=== PATIENT | male | born 1970 | race Caucasian/White ===

== ENCOUNTER 2020-08-30 12:19 | Emergency (ER) | payer MEDICAID ==
[2020-08-30 12:34] VITALS: BP 108/71
[2020-08-30] MEDS ORDERED: cephALEXin 250 MG CAPSULE PO STA (12:41)
--- NOTE | 2020-08-30 12:43 | ED Physician Documentation ---
PD HPI HEENT - Stated complaint Stated Complaint: PAIN JAW - Chief complaint Chief Complaint: Heent - History obtained from History obtained from: Patient - Additional information Additional information: 50-year-old gentleman with a long history of dental problems, has difficulty seeing a dentist because of transportation issues etc. He has had worsening generally pain from several teeth on the left side over the last few days. No facial swelling or fevers. He specifically does not want clindamycin because that is what he was on last time and he is of been under the impression that you should switch antibiotics each time. Also note he has a penicillin allergy. PD PAST MEDICAL HISTORY - Present Medications Home Medications: Ambulatory Orders Medication Instructions Recorded Confirmed Clindamycin [Cleocin] 300 mg PO Q6H 7 Days capsule 03/22/15 Hydrocodone/Acetaminophen 1 each PO Q6H PRN #10 tablet 03/22/15 [Hydrocodon-Acetaminophen 5-325] Saccharomyces Boulardii [Florastor] 500 mg PO BIDWM #20 capsule 03/22/15 Clindamycin HCl [Clindamycin 300MG 300 mg PO Q6H #28 capsule 04/20/20 CAP] HYDROcod/ACETAM 5/325 [[place] 5/325] 1 - 2 ea PO Q6H PRN #7 tablet 04/20/20 Cephalexin [Keflex] 500 mg PO Q6H #40 capsule 08/30/20 HYDROcod/ACETAM 5/325 [[place] 5/325] 1 - 2 tab PO Q6H PRN #15 tablet 08/30/20 - Allergies Allergies/Adverse Reactions: Allergies Allergy/AdvReac Type Severity Reaction Status Date / Time Penicillins Allergy Rash Verified 08/30/20 12:29 - Social History Does the pt smoke?: No Smoking Status: Never smoker PD ED PE NORMAL - Vitals Vital signs reviewed: Yes - General General: Alert and oriented X 3, No acute distress - HEENT HEENT: PERRL, EOMI, Other (Is all but edentulous with basically just nubbins of teeth for the most part especially on the top. What teeth he does have left are on the bottom left and are all carious and tender. There is no obvious abscess, facial swelling or sublingual edema.) - Neck Neck: Supple, no meningeal sign, No bony TTP - Respiratory Respiratory: Clear bilaterally - Abdomen Abdomen: Non tender - Back Back: No CVA TTP, No spinal TTP - Derm Derm: Normal color, Warm and dry - Extremities Extremities: No edema, No calf tenderness / cord - Neuro Neuro: Alert and oriented X 3, Normal speech Results - Vitals Vitals: Vital Signs - 24 hr 08/30/20 12:29 Temperature 36.5 C Heart Rate 92 Respiratory 16 Rate Blood Pressure 108/71 O2 Saturation 100 Oxygen O2 Source Room air Departure - Departure Disposition: Home, Self Care Clinical Impression: Pain due to dental caries Condition: Good Record reviewed to determine appropriate education?: Yes Assessment: Pain from from dental caries Instructions: ED Tooth Pain Follow-Up: RICHARD YU [Physician No Access] - Prescriptions: Cephalexin [Keflex] 500 mg PO Q6H #40 capsule HYDROcod/ACETAM 5/325 [[place] 5/325] 1 - 2 tab PO Q6H PRN #15 tablet PRN Reason: Pain Comments: As discussed, at this point it is probably mccain to see a dental/oral maxillofacial surgeon. Most of your teeth probably just need to be removed and to consider dentures. 1 is listed on this form. Return for new or worsening symptoms or for fevers. Do not drink or drive with prescription pain medication. You can take ibuprofen as well for the pain.
[2020-08-30] MEDS: HYDROcod/ACETAM 5/325 MG TABLET PO STA ×2 (12:52→12:53)
== END 2020-08-30 12:57 | disposition home or self-care (01) ==
LOC: ED 12:19
DX: K02.9 Dental caries, unspecified (principal); Z88.0 Allergy status to penicillin
CPT/HCPCS: 99282; 99283; A9270

== ENCOUNTER 2020-12-04 23:55 | Inpatient (IN) | payer MEDICAID ==
--- NOTE | 2020-12-05 00:08 | ED Physician Documentation ---
PD HPI ABD PAIN - Stated complaint Stated Complaint: ABD PX, NAUSEA - Chief complaint Chief Complaint: Abd Pain - History obtained from History obtained from: Patient - History of Present Illness Timing - onset: Yesterday Timing - duration: Days (2) Timing - details: Gradual onset, Still present Quality: Cramping, Aching, Sharp, Fullness/distended Location: All over / everywhere, RLQ Radiation: No: Chest, Improved by: Laying still Worsened by: Breathing, Position, Palpation Associated symptoms: Nausea, Vomiting. No: Fever, Diarrhea Similar symptoms before: No diagnosis Recently seen: Not recently seen - Additional information Additional information: Previously well 50-year-old male has developed symptoms of abdominal cramping something he is never experienced previously and it seems to be localized to the right side. He is feeling bloated and he is having more heartburn than he normally has. He has had a reduced appetite and he has not had a fever. He has been on antibiotics previously both Keflex and clindamycin for dental abscess and the timing of this is been months ago. He denies any current diarrhea. He has formed stool. Review of Systems Constitutional: denies: Fever Eyes: denies: Decreased vision Ears: denies: Ear pain Nose: denies: Congestion Throat: denies: Sore throat Cardiac: denies: Chest pain / pressure Respiratory: denies: Dyspnea, Cough GI: reports: Abdominal Pain, Nausea, Vomiting. denies: Constipation, Diarrhea : denies: Dysuria, Frequency Skin: denies: Rash Musculoskeletal: denies: Neck pain, Back pain, Extremity pain Neurologic: denies: Generalized weakness, Focal weakness, Numbness PD PAST MEDICAL HISTORY - Present Medications Home Medications: Ambulatory Orders Medication Instructions Recorded Confirmed Acetaminophen [Aphen] 325 mg PO PRN 12/05/20 diphenhydrAMINE [Benadryl] 50 mg PO HS 12/05/20 12/05/20 - Allergies Allergies/Adverse Reactions: Allergies Allergy/AdvReac Type Severity Reaction Status Date / Time Penicillins Allergy Rash Verified 12/04/20 23:59 - Social History Does the pt smoke?: No Smoking Status: Never smoker PD ED PE NORMAL - Vitals Vital signs reviewed: Yes (Hypertensive) - General General: Alert and oriented X 3, No acute distress, Well developed/nourished - HEENT HEENT: Atraumatic, PERRL, EOMI - Neck Neck: Supple, no meningeal sign, No bony TTP - Cardiac Cardiac: RRR, No murmur - Respiratory Respiratory: No respiratory distress, Clear bilaterally - Abdomen Abdomen: Soft, Other (mildly distended with tenderness most reproducible in the RLQ but without garding ) - Back Back: No CVA TTP, No spinal TTP - Derm Derm: Normal color, Warm and dry, No rash - Extremities Extremities: No deformity, No edema - Neuro Neuro: Alert and oriented X 3, director of psychiatry 2-12 intact, No motor deficit, No sensory deficit, Normal speech Eye Opening: Spontaneous Motor: Obeys Commands Verbal: Oriented GCS Score: 15 - Psych Psych: Normal mood, Normal affect Results - Vitals Vitals: Vital Signs - 24 hr 12/04/20 12/05/20 12/05/20 23:59 01:33 02:01 Temperature 36.5 C Heart Rate 92 91 91 Respiratory 16 17 17 Rate Blood Pressure 139/90 H 152/93 H 143/92 H O2 Saturation 99 100 100 Oxygen O2 Source Room air - Labs Labs: Laboratory Tests 12/05/20 12/05/20 00:28 00:28 WBC 16.9 H RBC 4.87 Hgb 14.2 Hct 44.7 MCV 91.8 MCH 29.2 MCHC 31.8 L RDW 14.4 Plt Count 416 MPV 9.4 Neut # (Auto) 14.6 H Lymph # (Auto) 1.4 L [place] # (Auto) 0.8 Eos # (Auto) 0.1 Baso # (Auto) 0.0 Absolute Nucleated RBC 0.00 Nucleated RBC % 0.0 Sodium 141 Potassium 3.8 Chloride 104 Carbon Dioxide 26 Anion Gap 11.0 BUN 15 Creatinine 0.8 Estimated GFR (MDRD) 103 Glucose 128 H Calcium 9.6 Total Bilirubin 0.8 AST 16 ALT 16 Alkaline Phosphatase 119 Total Protein 8.6 H Albumin 4.4 Globulin 4.2 Albumin/Globulin Ratio 1.0 Lipase 20 L - Rads (name of study) CT ab/pel with Radiology: Prelim report reviewed, Final report received ( this appearance. Please correlate with clinical findings. Small ascites. Nonemergent/incidental findings in the report.), Discussed with rads, EMP read indepedently, See rad report PD MEDICAL DECISION MAKING - ED course Complexity details: reviewed results, re-evaluated patient, considered differential, d/w patient ED course: 50-year-old male previously well with abdominal pain has CT scan concerning for a bowel obstruction originating at the terminal ileum. There is thickening of the terminal ileum wall but Crohn's does not appear to fit the diagnosis well as the patient does have formed stool. I consulted our surgeon Dr. Tenorio and she will place the patient in the hospital on antibiotic and evaluate in the morning. There is concern for complicated appendicitis. Departure - Departure Disposition: ED Place in Observation Clinical Impression: Abdominal pain Qualifiers: Abdominal location: right lower quadrant Qualified Code(s): R10.31 - Right lower quadrant pain Condition: Good Discharge Date/Time: 12/05/20 04:00
[2020-12-05 00:33] LABS: BASOPHILS % (AUTO) 0.2 %; EOSINOPHILS # (AUTO) 0.1 10^3/uL (0.0-0.7); EOSINOPHILS % (AUTO) 0.5 %; HCT - HEMATOCRIT 44.7 % (42.0-52.0); HGB - HEMOGLOBIN 14.2 g/dL (14.0-18.0); LYMPHOCYTES # (AUTO) 1.4 10^3/uL (1.5-3.5); LYMPHOCYTES % (AUTO) 8.4 %; MEAN CORPUSCULAR HEMOGLOBIN 29.2 pg (27.0-31.0); MEAN CORPUSCULAR HGB CONC 31.8 g/dL (32.0-36.0); MEAN CORPUSCULAR VOLUME 91.8 fL (80.0-94.0); MEAN PLATELET VOLUME 9.4 fL (7.4-11.4); MONOCYTES # (AUTO) 0.8 10^3/uL (0.0-1.0); MONOCYTES % (AUTO) 4.4 %; NEUTROPHILS # (AUTO) 14.6 10^3/uL (1.5-6.6); NEUTROPHILS % (AUTO) 86.1 %; PLT - PLATELET COUNT 416 10^3/uL (130-450); RED BLOOD COUNT 4.87 10^6/uL (4.70-6.10); RED CELL DISTRIBUTION WIDTH 14.4 % (12.0-15.0); WHITE BLOOD COUNT 16.9 x10^3/uL (4.8-10.8)
[2020-12-05] MEDS ORDERED: SODIUM CHLORIDE 0.9% 1,000 ML IV STA (00:44)
[2020-12-05 00:45] LABS: ALBUMIN 4.4 g/dL (3.2-5.5); BILIRUBIN,TOTAL 0.8 mg/dL (0.2-1.0); CALCIUM 9.6 mg/dL (8.5-10.3); CREATININE 0.8 mg/dL (0.6-1.2); POTASSIUM 3.8 mmol/L (3.5-5.0); TOTAL PROTEIN 8.6 g/dL (6.7-8.2)
[2020-12-05] MEDS ORDERED: IOVERSOL 320 100 ML VIAL IVP ONE (01:10)
[2020-12-05] MEDS: IOVERSOL 320 100 ML VIAL IVP ONE (01:42)
[2020-12-05] MEDS ORDERED: ACETAMINOPHEN 1,000 MG/100 ML 100 ML IV PRN (02:23)
[2020-12-05] MEDS ORDERED: ONDANSETRON 4 MG/2 ML VIAL IVP PRN (02:23)
[2020-12-05] MEDS ORDERED: HYDROmorphone 1 MG/ML CARPUJECT IVP PRN (02:23)
[2020-12-05] MEDS ORDERED: PIPERACILLIN/TAZOBACTAM 3.375 GM in SODIUM CHLORIDE 0.9% MINIBAG 100 ML IV SCH (03:00)
[2020-12-05] MEDS: LACTATED RINGERS 1,000 ML IV SCH ×3 (03:09→23:56)
[2020-12-05] MEDS: KETOROLAC 30 MG/ML VIAL IVP PRN ×2 (03:12→17:14)
[2020-12-05 04:23] LABS: B. PARAPERTUSSIS- RESP PCR PAN NOT DETECTED; CORONAVIRUS 229E-RESP PCR NOT DETECTED; CORONAVIRUS HKU1-RESP PCR NOT DETECTED; CORONAVIRUS NL63-RESP PCR NOT DETECTED; CORONAVIRUS OC43-RESP PCR NOT DETECTED; HUMAN METAPNEUMOVIRUS NOT DETECTED; INFLUENZA A- RESP PCR PANEL NOT DETECTED; INFLUENZA B - RESP PCR PANEL NOT DETECTED; PARAINFLUENZA VIRUS 1 NOT DETECTED; PARAINFLUENZA VIRUS 2 NOT DETECTED; PARAINFLUENZA VIRUS 3 NOT DETECTED; PARAINFLUENZA VIRUS 4 NOT DETECTED; RHINOVIRUS/ENTEROVIRUS NOT DETECTED; RSV- RESP PCR PANEL NOT DETECTED; SARS-CoV-2 -RESP PCR PANEL NOT DETECTED
[2020-12-05 04:24] LABS: B. PERTUSSIS- RESP PCR PANEL NOT DETECTED; C. PNEUMONIAE- RESP PCR PANEL NOT DETECTED; M. PNEUMONIAE- RESP PCR PANEL NOT DETECTED
[2020-12-05] MEDS: SODIUM CHLORIDE FLUSH 0.9% 10 ML SYRINGE IVP PRN ×2 (06:13→17:14)
[2020-12-05] MEDS: PANTOPRAZOLE 40 MG VIAL IVP SCH (06:13)
[2020-12-05] MEDS: levoFLOXacin 500 MG/100 ML 500 MG/100 ML BAG IV SCH (08:28)
[2020-12-05] MEDS: ENOXAPARIN 40 MG/0.4 ML SYRINGE SUBQ SCH (08:32)
[2020-12-05] MEDS: SODIUM CHLORIDE FLUSH 0.9% 10 ML SYRINGE IVP SCH ×2 (09:44→16:19)
--- NOTE | 2020-12-05 10:34 | CT Report ---
PROCEDURE: Abdomen/Pelvis W INDICATIONS: RLQ pain CONTRAST: IV CONTRAST: Optiray 320 ml: 100 PO CONTRAST: *NO PO CONTRAST TECHNIQUE: After the administration of 100 cc Optiray 320 contrast, 5 mm thick sections acquired from the diaphr agms to the symphysis. 5 mm thick coronal and sagittal reformats were acquired. For radiation dose reduction, the following was used: automated exposure control, adjustment of mA and/or kV according to patient size. COMPARISON: None. FINDINGS: Image quality: Excellent. ABDOMEN: Lung bases: A right lower lobe calcified granuloma can be seen, as on series 4 image 27. Lung bases are otherwise clear. Heart size is normal. Solid organs: Liver demonstrates normal size. Diffuse fatty liver infiltration can be seen. No signi ficant splenic abnormality is seen. Gallbladder demonstrates gallstones within its lumen. Biliary sy stem is non dilated. Pancreas enhances normally. No adrenal nodules. Kidneys demonstrate normal si ze and enhancement, without hydronephrosis. Peritoneum and bowel: In this patient with this given history, scrutiny is given to the appendix. Th e appendix is not well seen. Fluid-filled loops of small bowel are seen, which extends throughout the small bowel, including the t erminal ileum, which measure up to 3.6 cm. Within the distal terminal ileum, there is focal wall thic kening seen. The small bowel wall demonstrates mild generalized thickening and hyperenhancement. No f ree air is seen. A small amount of layering free fluid can be seen within the pelvis. No significant colonic abnormality is seen. No loculated abscess is seen. Nodes and vessels: No retroperitoneal or mesenteric adenopathy by size criteria. Aorta and inferior vena cava are normal in size. Atherosclerotic calcification is seen. Miscellaneous: No ventral hernias. PELVIS: Genitourinary: Bladder wall thickness is normal. Miscellaneous: No inguinal hernias or adenopathy. Bones: No suspicious bony lesions. No vertebral body compression fractures. IMPRESSION: The appendix is not clearly seen on this study. Generalized prominent loops of fluid-filled small bowel seen. Focal wall thickening can be seen invo lving the distalmost terminal ileum, which likely causes a degree of obstruction. Please consider underlying Crohn's disease. A small amount of accompanying narrowing free fluid can be seen within the pelvis. No findings of perforation or abscess can be seen. Incidental note is made of: Prior granulomatous exposure. Fatty liver infiltration Gallstones Note: No significant discrepancy from the preliminary report. Reviewed by: Michael Matthews MD on 12/05/2020 9:33 AM [facility] Approved by: Michael Matthews MD on 12/05/2020 9:33 AM [facility] Station ID: [id number]
[2020-12-05] MEDS ORDERED: diphenhydrAMINE INJ 50 MG/ML VIAL IVP PRN (11:44)
--- NOTE | 2020-12-05 12:15 | HISTORY & PHYSICAL EXAMINATION ---
Chief Complaint - Chief Complaint Chief Complaint: Abdominal pain Abdominal Pain HPI - Admitted From Admitted from: ED - History Obtained From History obtained from: Patient Exam limitations: No limitations - History of Present Illness Severity at the worst: Moderate Pain Quality: Sharp, Aching, Throbbing Context-Pain started w/: Rest Timing: Gradual onset Duration: Hours: (24) Worsened by: Exertion, Movement Associated symptoms: Nausea HPI Comment/Other: 50 year old man presented to the ED with right lower quadrant pain. He thinks it started about two days ago but was mild until yesterday. This has been associated with nausea but no vomiting. He denies diarrhea and fever. He reports a similar episode approximately 3 months ago. He reports he was taking antibiotics for a tooth abscess at that time and the pain wasn't as severe. Her says that episode resolved after about 3 days with no other treatment. He denies blood in his stool. Denies any family history of inflammatory bowel disease or colon or rectal cancer. Also complains of skin itching. Reports he knows he has bed bugs and has been taking benadryl at home for itching. Admitted overnight and started on Zosyn. Reports his pain is dramatically improved this morning and he is having diarrhea stools. PMH/PSH - Past Medical History Cardiovascular: positive: None Respiratory: positive: None Neuro: positive: None Endocrine/Autoimmune: positive: None GI: positive: GERD : positive: None HEENT: positive: Other Psych: positive: None Musculoskeletal: positive: None Derm: positive: None MRSA Hx?: Yes - Past Surgical History HEENT: positive: Other Social & Family Hx - Social History Does the pt smoke?: No Smoking Status: Never smoker Does the pt drink ETOH?: No Does the pt have substance abuse?: No - POLST Patient has POLST: No Meds/Allgy - Home Medications Home Medications: Ambulatory Orders Medication Instructions Recorded Confirmed diphenhydrAMINE [Benadryl] 50 mg PO HS 12/05/20 12/05/20 - Allergies Allergies/Adverse Reactions: Allergies Allergy/AdvReac Type Severity Reaction Status Date / Time Penicillins Allergy Rash Verified 12/04/20 23:59 Review of Systems - Constitutional Constitutional: reports: Fatigue, Poor appetite. denies: Fever, Chills - Eyes Eyes: denies: Pain, Irritation - Ears, Nose & Throat Ears, Nose & Throat: denies: Tinnitus, Vertigo - Cardiovascular Cariovascular: denies: Irregular heart rate, Palpitations, Chest pain - Respiratory Respiratory: denies: Cough, Sputum production - Gastrointestinal Gastrointestinal: reports: Abdominal pain, Diarrhea. denies: Black stools, Bloody stools, Nausea, Vomiting - Genitourinary Genitourinary: denies: Dysuria, Frequency - Musculoskeletal Musculoskeletal: denies: Muscle pain, Back pain - Integumentary Integumentary: reports: Rash, Pruritis, Lesions - Neurological Neurological: denies: General weakness, Focal weakness - All Other Systems All Other Systems: reports: Reviewed and negative Exam - Vital Signs Reviewed Vital Signs: Yes Vital Signs: Vital Signs x48h Temp Pulse Resp BP Pulse Ox 12/05/20 12:08 37.2 C 90 16 125/70 96 12/05/20 08:09 36.9 C 80 18 129/79 96 - Physical Exam General Appearance: positive: No acute distress, Alert Eyes Bilateral: positive: Normal inspection, PERRL, EOMI ENT: positive: ENT inspection nml, Pharynx nml, No signs of dehydration Neck: positive: Nml inspection, No JVD, Trachea midline Respiratory: positive: Chest non-tender, No respiratory distress, Breath sounds nml Cardiovascular: positive: Regular rate & rhythm, No murmur Peripheral Pulses: positive: 1+ Abdomen: positive: Nml bowel sounds, No distention (Very mild), Tenderness (Minimal). negative: Guarding, Rebound Skin: positive: No rash (Bilateral lower extremities and hands) Extremities: positive: Non-tender Neurologic/Psychiatric: positive: Oriented x3 Results - Lab Results Fish Bones: 12/05/20 00:28 12/05/20 00:28 Other Lab Results: Lab Results x24hrs 12/05/20 12/05/20 12/05/20 Range/Units 03:25 00:28 00:28 WBC 16.9 H (4.8-10.8) x10^3/uL RBC 4.87 (4.70-6.10) 10^6/uL Hgb 14.2 (14.0-18.0) g/dL Hct 44.7 (42.0-52.0) % MCV 91.8 (80.0-94.0) fL MCH 29.2 (27.0-31.0) pg MCHC 31.8 L (32.0-36.0) g/dL RDW 14.4 (12.0-15.0) % Plt Count 416 (130-450) 10^3/uL MPV 9.4 (7.4-11.4) fL Neut # (Auto) 14.6 H (1.5-6.6) 10^3/uL Lymph # (Auto) 1.4 L (1.5-3.5) 10^3/uL Butts # (Auto) 0.8 (0.0-1.0) 10^3/uL Eos # (Auto) 0.1 (0.0-0.7) 10^3/uL Baso # (Auto) 0.0 (0.0-0.1) 10^3/uL Absolute Nucleated RBC 0.00 x10^3/uL Nucleated RBC % 0.0 /100WBC Sodium 141 (135-145) mmol/L Potassium 3.8 (3.5-5.0) mmol/L Chloride 104 (101-111) mmol/L Carbon Dioxide 26 (21-32) mmol/L Anion Gap 11.0 (6-13) BUN 15 (6-20) mg/dL Creatinine 0.8 (0.6-1.2) mg/dL Estimated GFR (MDRD) 103 (>89) Glucose 128 H (70-100) mg/dL Calcium 9.6 (8.5-10.3) mg/dL Total Bilirubin 0.8 (0.2-1.0) mg/dL AST 16 (10-42) IU/L ALT 16 (10-60) IU/L Alkaline Phosphatase 119 (42-121) IU/L Total Protein 8.6 H (6.7-8.2) g/dL Albumin 4.4 (3.2-5.5) g/dL Globulin 4.2 (2.1-4.2) g/dL Albumin/Globulin Ratio 1.0 (1.0-2.2) Lipase 20 L (22-51) U/L Nasal Adenovirus (PCR) NOT DETECTED Nasal B. parapertussis DNA (PCR) NOT DETECTED Nasal Coronavir 229E PCR NOT DETECTED Nasal Coronavir HKU1 PCR NOT DETECTED Nasal Coronavir NL63 PCR NOT DETECTED Nasal Coronavir OC43 PCR NOT DETECTED Nasal Enterovir/Rhinovir PCR NOT DETECTED Nasal Influenza B PCR NOT DETECTED Nasal Influenza A PCR NOT DETECTED Nasal Parainfluen 1 PCR NOT DETECTED Nasal Parainfluen 2 PCR NOT DETECTED Nasal Parainfluen 3 PCR NOT DETECTED Nasal Parainfluen 4 PCR NOT DETECTED Nasal RSV (PCR) NOT DETECTED Nasal B.pertussis DNA PCR NOT DETECTED Nasal C.pneumoniae (PCR) NOT DETECTED Ta Human Metapneumo PCR NOT DETECTED Nasal M.pneumoniae (PCR) NOT DETECTED Nasal SARS-CoV-2 (PCR) NOT DETECTED - Diagnostic Imaging Results Diagnostic Imaging Results Comments: Terminal ileitis with a partial obstruction Impression/Plan - Problem List Problem List: Terminal ileutis improving with antibiotic therapy 1. Advance diet 2. Treat skin and hair with Permethrin 3. Check stool studies 4. He will need a colonoscopy when this episode resolves. We discussed this and he will consider it.
[2020-12-05] MEDS ORDERED: PERMETHRIN 5% CREAM 60 GM TUBE TOP ONE (13:00)
--- NOTE | 2020-12-05 13:44 | XRAY Report ---
PROCEDURE: Chest 1 View X-Ray INDICATIONS: Pre-op evaluation. Bowel obstruction. TECHNIQUE: One view of the chest was acquired. COMPARISON: Prior chest radiograph, 02/20/2018, 06/30/2019. Correlation is made with the prior chest CT 05/16/2020. Correlation is made with the accompanying abdomen pelvis CT, 12/05/2020. FINDINGS: Surgical changes and devices: None. Lungs and pleura: No pleural effusions or pneumothorax. Lungs are clear. Mediastinum: Mediastinal contours appear normal. Heart size is normal. Bones and chest wall: No suspicious bony lesions. Overlying soft tissues appear unremarkable. IMPRESSION: Portable chest study within normal limits. Reviewed by: Michael Matthews MD on 12/05/2020 12:43 PM [facility] Approved by: Michael Matthews MD on 12/05/2020 12:43 PM [facility] Station ID: [id number]
[2020-12-05 15:33] LABS: H. PYLORIS ANTIGEN STL NEGATIVE (Negative)
--- NOTE | 2020-12-05 17:54 | CONSULTATION NOTE ---
DATE OF SERVICE: 12/05/2020 Physician: Lynette Geller MD HISTORY OF PRESENT ILLNESS: This is a 50-year-old white male who has a history of severe dental caries, almost all his upper teeth have sloughed off down to the gum line, history of prior dental abscesses requiring treatment with clindamycin, and recent infections with bedbugs and/or scabies for which the house is getting fumigated. The patient presented with complaints of 2 days of abdominal pain that was increasing and the worst that he has ever had. There was no associated nausea or vomiting. Workup in the emergency room reveals that he has ileitis, increased white blood count, and he was placed in Observation status on the surgical service for management of ileitis. The patient describes that he had very similar symptoms 3 months ago, but at that time was on oral clindamycin and other antibiotics for treatment of a dental abscess and the abdominal symptoms subsided as he finished the antibiotics for his dental problems. He has no family history of bowel disease. He has never undergone endoscopy or colonoscopy. A consultation was requested by the surgeon of the Hospitalist team, to perform preop clearance. The patient denies any dyspnea on exertion, chest pain, palpitations, or syncope. He never gets leg edema. He has never had an EKG prior to today, and has never needed a stress test. The family history is negative for heart disease. ALLERGIES: PENICILLIN. MEDICATIONS: [id number] Benadryl at bedtime and for itching recent scabies and bedbug infection management. FAMILY HISTORY: No inherited diseases. 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 He currently does not have a license to drive, but does drive a car. He denies any meth use. He is a smoker of 1/2 to 1 pack of cigarettes a day. 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 He describes a fracture of the right upper leg for which he was in a long leg cast for 6 months. REVIEW OF SYSTEMS: He eats food that is easy to chew. A comprehensive review of systems was performed and the pertinent positives are listed, the rest are negative. PHYSICAL EXAMINATION GENERAL: Middle-aged white male, male pattern baldness, he is in no distress. VITAL SIGNS: Blood pressure 125/70, heart rate 90, sinus rhythm, afebrile, room air saturation 96%. HEENT: Reveals moist oral mucosa. The lower teeth are relatively stable. The upper teeth are all broken and have cavities and have sloughed off down to the gum line, but the roots have not been removed. NECK: Not visualized due to a long mathews. CHEST: Clear. CARDIOVASCULAR: Normal heart sounds without murmurs. ABDOMEN: Soft, decreased bowel sounds. Nontender to light palpation. No organomegaly. EXTREMITIES: No clubbing, cyanosis or edema. NEUROLOGIC: Grossly intact. LABORATORY DATA: Normal electrolytes. Normal BUN and creatinine. Normal liver tests and lipase. White blood count 16.9, hemoglobin 14, platelet count normal at 416. No INR was done. Stool was sent for studies and it is C. difficile negative. The stool is also H. pylori negative. A [employer] test was negative for COVID. Chest x-ray: No active pulmonary disease. EKG: Normal sinus rhythm, rate 84, T-wave flattening in leads I, aVL, II, III and aVF and biphasic/flat T waves in V5 and V6. There is no prior EKG available for comparison. IMPRESSION/DIAGNOSES: 1. Ileitis. 2. Pre-operative evaluation. 3. Partial small-bowel obstruction. 4. Bedbugs bites with infection. 5. Scabies. 6. Dental caries. 7. Abnormal electrocardiogram. PLAN: As per the Revised Cardiac Risk Index for preoperative risk assessment, he has 0 points, which gives him a 3.9% risk of major event like , AL or cardiac arrest in the next 30 days. With his abnormal resting EKG, however, recommendation is to obtain a resting Echo for preop clearance to assess for any wall motion abnormalities and ultimately if symptoms suggest, he also needs a stress test to rule out coronary artery disease because of this abnormal EKG. Poor dentition gives him some coronary risk. He was advised to get dental management for his severe dental caries. Agree with your order for treatment of the scabies and bedbug bites. Continue with management of his bowel obstruction and ileitis as per your routine and timing of colonoscopy as you deem fit. DEEP VENOUS THROMBOSIS: PROPHYLAXIS: As per Surgery. CODE STATUS: FULL CODE. ATTESTATION: Patient is expected to be discharged or transferred to another facility within 96 hours: Yes. cc: MD Devon Orr MD TD: 12/05/2020 16:45 MTDD
[2020-12-06] MEDS: SODIUM CHLORIDE FLUSH 0.9% 10 ML SYRINGE IVP SCH ×4 (00:27→23:31)
[2020-12-06] MEDS: KETOROLAC 30 MG/ML VIAL IVP PRN (06:20)
[2020-12-06] MEDS: SODIUM CHLORIDE FLUSH 0.9% 10 ML SYRINGE IVP PRN (06:20)
[2020-12-06] MEDS: PANTOPRAZOLE 40 MG VIAL IVP SCH (06:20)
[2020-12-06 07:27] LABS: BASOPHILS % (AUTO) 0.4 %; EOSINOPHILS # (AUTO) 0.2 10^3/uL (0.0-0.7); EOSINOPHILS % (AUTO) 2.2 %; HCT - HEMATOCRIT 36.3 % (42.0-52.0); HGB - HEMOGLOBIN 11.4 g/dL (14.0-18.0); LYMPHOCYTES # (AUTO) 2.8 10^3/uL (1.5-3.5); LYMPHOCYTES % (AUTO) 33.5 %; MEAN CORPUSCULAR HEMOGLOBIN 29.1 pg (27.0-31.0); MEAN CORPUSCULAR HGB CONC 31.4 g/dL (32.0-36.0); MEAN CORPUSCULAR VOLUME 92.6 fL (80.0-94.0); MEAN PLATELET VOLUME 10.2 fL (7.4-11.4); MONOCYTES # (AUTO) 0.7 10^3/uL (0.0-1.0); MONOCYTES % (AUTO) 7.9 %; NEUTROPHILS # (AUTO) 4.7 10^3/uL (1.5-6.6); NEUTROPHILS % (AUTO) 55.5 %; PLT - PLATELET COUNT 339 10^3/uL (130-450); RED BLOOD COUNT 3.92 10^6/uL (4.70-6.10); RED CELL DISTRIBUTION WIDTH 14.5 % (12.0-15.0); WHITE BLOOD COUNT 8.5 x10^3/uL (4.8-10.8)
[2020-12-06 07:40] LABS: ALBUMIN 3.5 g/dL (3.2-5.5); ALBUMIN/GLOBULIN RATIO 1.2 (1.0-2.2); BILIRUBIN,TOTAL 0.3 mg/dL (0.2-1.0); CALCIUM 8.7 mg/dL (8.5-10.3); CREATININE 0.8 mg/dL (0.6-1.2); POTASSIUM 3.6 mmol/L (3.5-5.0); TOTAL PROTEIN 6.4 g/dL (6.7-8.2)
[2020-12-06] MEDS: ENOXAPARIN 40 MG/0.4 ML SYRINGE SUBQ SCH (08:50)
[2020-12-06] MEDS: levoFLOXacin 500 MG/100 ML 500 MG/100 ML BAG IV SCH (09:04)
[2020-12-06] MEDS: LACTATED RINGERS 1,000 ML IV SCH ×2 (10:41→20:20)
--- NOTE | 2020-12-06 16:30 | PROVIDER PROGRESS NOTE ---
Progress Note Subjective Hospital day #2 in this 50-year-old male with recurrent right lower quadrant pain, bloody diarrhea, and terminal ileal thickening. Having bowel function. No nausea no vomiting. Continues with abdominal discomfort. No family history of inflammatory bowel disease. Seen by the hospitalist service February where indebted. No prior colonoscopy or abdominal surgery. Up until recently the patient has had infrequent stooling and over the last 4 to 5 months crampy abdominal pain with development of intermittent loose stooling and diarrhea. Objective General Appearance: positive: No acute distress Eyes Bilateral: positive: Normal inspection ENT: positive: ENT inspection nml Neck: positive: Nml inspection Respiratory: positive: Chest non-tender, No respiratory distress, Breath sounds nml. negative: Wheezes, Rales, Rhonchi Cardiovascular: positive: Regular rate & rhythm Extremities: positive: Non-tender, Full ROM, Nml appearance Neurologic/Psychiatric: positive: Oriented x3, CN's nml (2-12) Abdomen diffusely distended. Tenderness to palpation. No rebound or guarding. Impression/Plan Hospital day #2 in this 50-year-old male with recurrent right lower quadrant pain, bloody diarrhea, and terminal ileal thickening.Denies any recent travel or sick contacts. Appears consistent with Crohn's disease. Will need colonoscopy. We will proceed with repeat CAT scan to evaluate for interval change. We will also send stool studies. (1) GI - IVF, bowel regimen, Bowel rest. (2) SURGERY - Plan repeat CT scan, colonoscopy and biopsies. We will send stool studies as well. In the setting of chronic ileal stricturing Crohn's patient will need resection. (3) Renal/Lytes - continue IVF. Renal indices within normal limits. (4) Respiratory - O2 as necessary. Continue IS. (5) Heme - Will continue with DVT ppx. H/H stable. (6) Cardiovascular - HD acceptable. (7) Neuro - Opiate sparring analgesia. Antispasmodics with Robaxin. Neuropathic agents. (8) Immune/Infectious Disease - Continue with empiric antibiotics. Stools stool studies. (9) ENDOCRINOLOGY - in the event that the patient will need immunomodulatory therapy to include steroids will obtain quant gold, hepatitis panel, HIV, amongst others especially if the patient will need long-term biologic therapy. Please note that voice recognition software was used to transcribe this note and inadvertent errors might persist in spite of review and editing. I am obliged to you for your attention. I am thankful to you for allowing me to participate with you in this care of this patient.
[2020-12-06] MEDS ORDERED: IOVERSOL 320 100 ML VIAL IVP ONE (18:24)
[2020-12-06] MEDS ORDERED: IOPAMIDOL-300 50 ML VIAL ONE (18:24)
[2020-12-06] MEDS: IOVERSOL 320 100 ML VIAL IVP ONE (20:02)
[2020-12-06] MEDS ORDERED: IOVERSOL 320 50 ML VIAL PO ONE (20:07)
--- NOTE | 2020-12-06 20:40 | CT Report ---
PROCEDURE: Abdomen/Pelvis W INDICATIONS: re evaluate terminal ileitis TECHNIQUE: After the administration of intravenous contrast, 5 mm thick sections acquired from the diaphragms to the symphysis. 2.5 mm thick coronal and sagittal reformats were acquired. Optional 10-minute delay ed imaging may be performed from the kidneys to the bladder. For radiation dose reduction, the Etherstacko wing was used: automated exposure control, adjustment of mA and/or kV according to patient size. COMPARISON: 12/05/2020. FINDINGS: ABDOMEN: Posterior bilateral dependent patchy and ill-defined groundglass opacities. Hepatic steatosis. Spleen: Normal Gallbladder: Sub-5 mm multiple gallstones are present. No other specific evidence for acute cholecyst itis. Bile ducts: Normal Pancreas: Normal Adrenals: Normal Kidneys: Normal There is mural thickening involving the terminal ileum as well as the cecum. This appears stable to m ildly worsened since the prior study although could be accentuated by interval decompression of bowel loops. There is mild adjacent inflammatory fat stranding. There is also adjacent free fluid. There i s perisplenic and perihepatic ascites. No free air. Diffuse prominent appearance of mildly dilated sm all bowel loops although this appears improved since 12/05/2020. Abdominal nodes: Normal Aorta: Normal IVC: Normal No ventral hernias PELVIS: Bladder: Normal Pelvic nodes: Normal Groin: Normal Bones: No vertebral body compression fracture. No suspicious bone lesion. IMPRESSION: Redemonstrated mural thickening involving the terminal ileum as well as the cecum. This appears stable to mildly worsened since the prior study although the appearance could be eccentric by interval decompression of the bowel loops. Persistent diffuse dilated small bowel loops, although mildly improved since yesterday Patchy ill-defined and groundglass opacities within the visualized dependent lung bases suggestive of aspiration, new since yesterday. Reviewed by: Sarbjit Rodriguez MD on 12/06/2020 8:39 PM PDT Approved by: Sarbjit Rodriguez MD on 12/06/2020 8:39 PM PDT Station ID: [id number]
[2020-12-07 05:17] LABS: BASOPHILS % (AUTO) 0.6 %; EOSINOPHILS # (AUTO) 0.2 10^3/uL (0.0-0.7); EOSINOPHILS % (AUTO) 2.3 %; HCT - HEMATOCRIT 32.7 % (42.0-52.0); HGB - HEMOGLOBIN 10.5 g/dL (14.0-18.0); LYMPHOCYTES # (AUTO) 2.3 10^3/uL (1.5-3.5); LYMPHOCYTES % (AUTO) 36.6 %; MEAN CORPUSCULAR HEMOGLOBIN 29.7 pg (27.0-31.0); MEAN CORPUSCULAR HGB CONC 32.1 g/dL (32.0-36.0); MEAN CORPUSCULAR VOLUME 92.6 fL (80.0-94.0); MEAN PLATELET VOLUME 9.8 fL (7.4-11.4); MONOCYTES # (AUTO) 0.5 10^3/uL (0.0-1.0); MONOCYTES % (AUTO) 7.7 %; NEUTROPHILS # (AUTO) 3.4 10^3/uL (1.5-6.6); NEUTROPHILS % (AUTO) 52.5 %; PLT - PLATELET COUNT 285 10^3/uL (130-450); RED BLOOD COUNT 3.53 10^6/uL (4.70-6.10); RED CELL DISTRIBUTION WIDTH 14.4 % (12.0-15.0); WHITE BLOOD COUNT 6.4 x10^3/uL (4.8-10.8)
[2020-12-07 05:29] LABS: ALBUMIN 3.1 g/dL (3.2-5.5); ALKALINE PHOSPHATASE 82 IU/L (42-121); ALT ALANINE AMINOTRANSFERASE < 10 IU/L (10-60); AST ASPARTATE AMINOTRANSFERASE 13 IU/L (10-42); BILIRUBIN,TOTAL 0.3 mg/dL (0.2-1.0); BUN - BLOOD UREA NITROGEN 6 mg/dL (6-20); CALCIUM 8.4 mg/dL (8.5-10.3); CARBON DIOXIDE - CO2 28 mmol/L (21-32); CHLORIDE 106 mmol/L (101-111); CREATININE 0.8 mg/dL (0.6-1.2); GFR - MDRD 103 (>89); GLUCOSE 87 mg/dL (70-100); MAGNESIUM 1.8 mg/dL (1.7-2.8); PHOSPHORUS 2.8 mg/dL (2.5-4.6); POTASSIUM 3.7 mmol/L (3.5-5.0); SODIUM 139 mmol/L (135-145); TOTAL PROTEIN 6.1 g/dL (6.7-8.2)
[2020-12-07] MEDS: SODIUM CHLORIDE FLUSH 0.9% 10 ML SYRINGE IVP PRN (05:56)
[2020-12-07] MEDS: PANTOPRAZOLE 40 MG VIAL IVP SCH (05:56)
[2020-12-07] MEDS: LACTATED RINGERS 1,000 ML IV SCH ×2 (05:56→23:01)
[2020-12-07] MEDS: SODIUM CHLORIDE FLUSH 0.9% 10 ML SYRINGE IVP SCH ×2 (09:55→17:11)
[2020-12-07] MEDS: levoFLOXacin 500 MG/100 ML 500 MG/100 ML BAG IV SCH (09:55)
[2020-12-07] MEDS: ENOXAPARIN 40 MG/0.4 ML SYRINGE SUBQ SCH (09:55)
--- NOTE | 2020-12-07 10:35 | PHARMACY PROGRESS NOTE ---
- Best Possible Medication History Admit Date and Time: 12/05/20 0223 Processed by: Pharmacy Medication History completed: Yes Patient Interview: Pt interview ONLY source (Pt interviewed by Makayla 12/07) No prescription medications. As the person ultimately responsible for medication therapy, providers are able to order a medication from an existing home medication list in [facility] via the "Reconcile Routine" prior to Confirmation of that medication by direct support specialist. [facility] practice is discouraged except when the physician, in their clinical judgment, deems that a medical need exists for a medication without regard to previous use.
[2020-12-07] MEDS ORDERED: MAGNESIUM SULFATE 1 GM in SODIUM CHLORIDE 0.9% 50 ML IV ONE (12:15)
[2020-12-07] MEDS: POTASSIUM CHLOR 10 MEQ/100 ML 10 MEQ/100 ML BAG IV SCH ×3 (12:42→16:17)
[2020-12-07 14:07] LABS: HIV AG/AB 4TH GEN NON-REACTIVE (NON-REACTIVE)
[2020-12-07 15:07] LABS: HEPATITIS A IGM NON-REACTIVE (NON-REACTIVE); HEPATITIS B CORE ANTIBODY IGM NON-REACTIVE (NON-REACTIVE); HEPATITIS B SURFACE ANTIGEN NON-REACTIVE (NON-REACTIVE); HEPATITIS C ANTIBODY NON-REACTIVE (NON-REACTIVE)
--- NOTE | 2020-12-07 17:55 | PROVIDER PROGRESS NOTE ---
Progress Note Subjective Hospital day #3 in this 50-year-old male with recurrent right lower quadrant pain, bloody diarrhea, and terminal ileal thickening. Having bowel function. No nausea no vomiting. Continues with abdominal discomfort. No family history of inflammatory bowel disease. Seen by the hospitalist service February where indebted. No prior colonoscopy or abdominal surgery. Up until recently the patient has had infrequent stooling and over the last 4 to 5 months crampy abdominal pain with development of intermittent loose stooling and diarrhea. Repeat CT scan as listed below. Explained indication to proceed with colonoscopy tomorrow. CT abdomen pelvis December 06, 2020 impression: Redemonstrated mural thickening involving the terminal ileum as well as the cecum. This appears stable to mildly worsened since the prior study although the parents could be eccentric by interval decompression of the bowel loops. Per persistent diffuse dilated small bowel loops, although mildly improved since yesterday. Objective General Appearance: positive: No acute distress Eyes Bilateral: positive: Normal inspection ENT: positive: ENT inspection nml Neck: positive: Nml inspection Respiratory: positive: Chest non-tender, No respiratory distress, Breath sounds nml. negative: Wheezes, Rales, Rhonchi Cardiovascular: positive: Regular rate & rhythm Extremities: positive: Non-tender, Full ROM, Nml appearance Neurologic/Psychiatric: positive: Oriented x3, CN's nml (2-12) Abdomen diffusely distended. Tenderness to palpation. No rebound or guarding. Impression/Plan Hospital day #3 in this 50-year-old male with recurrent right lower quadrant pain, bloody diarrhea, and terminal ileal thickening.Denies any recent travel or sick contacts. Appears consistent with Crohn's disease. Will need colonoscopy. We will proceed with repeat CAT scan to evaluate for interval change. We will also send stool studies. Patient with persistent abdominal complaints and no significant change in constellation of symptoms. Will transition to inpatient admission given failure to improve. Patient will also be evaluated by hospitalist/cardiology by echocardiogram. (1) GI - IVF, bowel regimen, Bowel rest. Order bowel prep Suprep. (2) SURGERY - See CT scan as listed above. colonoscopy and biopsies. We will send stool studies as well. Colonoscopy indicated for diagnostics. Symptoms are as follows bloody diarrhea and normal CT imaging. Risks and benefits discussed at length. Informed consent obtained. Risks include but are not limited to, bleeding, infection, perforation, missed lesions, injury to local structures, need for further surgeries, and the periprocedural/sedation risks of heart attack stroke and . Patient was advised if any concerning areas were noted these would be sampled if too big to resect or performed for excision if within reasonable limits for endoscopic intervention. Please note that voice recognition software was used to transcribe this note and inadvertent errors might persist in spite of review and editing. I am obliged to you for your attention. I am thankful to you for allowing me to participate with you in this care of this patient.In the setting of chronic ileal stricturing Crohn's patient will need resection. (3) Renal/Lytes - continue IVF. Renal indices within normal limits. Replete electrolytes. (4) Respiratory - O2 as necessary. Continue IS. (5) Heme - Will continue with DVT ppx. H/H stable. (6) Cardiovascular - HD acceptable. (7) Neuro - Opiate sparring analgesia. Antispasmodics with Robaxin. Neuropathic agents. (8) Immune/Infectious Disease - Continue with empiric antibiotics. Stools stool studies. Will add metronidazole. Hepatitis panel and HIV negative. (9) ENDOCRINOLOGY - in the event that the patient will need immunomodulatory therapy to include steroids will obtain quant gold, hepatitis panel, HIV, amongst others especially if the patient will need long-term biologic therapy. Please note that voice recognition software was used to transcribe this note and inadvertent errors might persist in spite of review and editing. I am obliged to you for your attention. I am thankful to you for allowing me to participate with you in this care of this patient.
[2020-12-07] MEDS: metroNIDAZOLE 500 MG/100 ML 500 MG/100 ML BAG IV SCH (18:32)
[2020-12-07] MEDS: SODIUM/POTASSIUM/MAG SULFATES 354 ML PREP KIT PO SCH (18:32)
[2020-12-08] MEDS: metroNIDAZOLE 500 MG/100 ML 500 MG/100 ML BAG IV SCH ×3 (02:43→18:42)
[2020-12-08] MEDS: SODIUM CHLORIDE FLUSH 0.9% 10 ML SYRINGE IVP SCH ×3 (02:44→16:24)
[2020-12-08] MEDS: SODIUM/POTASSIUM/MAG SULFATES 354 ML PREP KIT PO SCH (04:55)
[2020-12-08 05:04] LABS: BASOPHILS % (AUTO) 0.3 %; EOSINOPHILS # (AUTO) 0.1 10^3/uL (0.0-0.7); EOSINOPHILS % (AUTO) 1.7 %; HCT - HEMATOCRIT 33.9 % (42.0-52.0); HGB - HEMOGLOBIN 10.9 g/dL (14.0-18.0); LYMPHOCYTES # (AUTO) 1.9 10^3/uL (1.5-3.5); LYMPHOCYTES % (AUTO) 28.7 %; MEAN CORPUSCULAR HEMOGLOBIN 29.5 pg (27.0-31.0); MEAN CORPUSCULAR HGB CONC 32.2 g/dL (32.0-36.0); MEAN CORPUSCULAR VOLUME 91.6 fL (80.0-94.0); MEAN PLATELET VOLUME 9.3 fL (7.4-11.4); MONOCYTES # (AUTO) 0.4 10^3/uL (0.0-1.0); MONOCYTES % (AUTO) 6.8 %; NEUTROPHILS # (AUTO) 4.1 10^3/uL (1.5-6.6); NEUTROPHILS % (AUTO) 62.3 %; PLT - PLATELET COUNT 289 10^3/uL (130-450); RED CELL DISTRIBUTION WIDTH 14.2 % (12.0-15.0); WHITE BLOOD COUNT 6.5 x10^3/uL (4.8-10.8)
[2020-12-08] MEDS: PANTOPRAZOLE 40 MG VIAL IVP SCH (05:13)
[2020-12-08] MEDS: SODIUM CHLORIDE FLUSH 0.9% 10 ML SYRINGE IVP PRN (05:13)
[2020-12-08 05:18] LABS: ALBUMIN 3.3 g/dL (3.2-5.5); BILIRUBIN,TOTAL 0.5 mg/dL (0.2-1.0); CALCIUM 8.6 mg/dL (8.5-10.3); CREATININE 0.8 mg/dL (0.6-1.2); MAGNESIUM 2.1 mg/dL (1.7-2.8); PHOSPHORUS 3.8 mg/dL (2.5-4.6); POTASSIUM 3.8 mmol/L (3.5-5.0); TOTAL PROTEIN 6.6 g/dL (6.7-8.2)
[2020-12-08] MEDS: ENOXAPARIN 40 MG/0.4 ML SYRINGE SUBQ SCH (08:09)
[2020-12-08] MEDS: levoFLOXacin 500 MG/100 ML 500 MG/100 ML BAG IV SCH (08:10)
--- NOTE | 2020-12-08 10:59 | ANESTHESIA ---
Pre-Anesthesia VS, & Labs - Diagnosis obstructed ileitis - Procedure colonoscopy Vital Signs: Temp Pulse Resp BP Pulse Ox 36.6 C 73 14 149/90 H 98 12/08/20 08:12 12/08/20 08:12 12/08/20 08:12 12/08/20 08:12 12/08/20 08:12 Height: 5 ft 9 in Weight (kg): 66.5 kg Body Mass Index: 21.6 BMI Classification: Healthy weight - NPO >8 hours - Lab Results Current Lab Results: Laboratory Tests 12/08/20 04:59: Sodium 142, Potassium 3.8, Chloride 104, Carbon Dioxide 29, Anion Gap 9.0, BUN 5 L, Creatinine 0.8, Estimated GFR (MDRD) 103, Glucose 91, Calcium 8.6, Phosphorus 3.8, Magnesium 2.1, Total Bilirubin 0.5, AST 16, ALT 14, Alkaline Phosphatase 90, Total Protein 6.6 L, Albumin 3.3, Globulin 3.3, Albumin/Globulin Ratio 1.0 12/08/20 04:59: WBC 6.5, RBC 3.70 L, Hgb 10.9 L, Hct 33.9 L, MCV 91.6, MCH 29.5, MCHC 32.2, RDW 14.2, Plt Count 289, MPV 9.3, Neut # (Auto) 4.1, Lymph # (Auto) 1.9, [place] # (Auto) 0.4, Eos # (Auto) 0.1, Baso # (Auto) 0.0, Absolute Nucleated RBC 0.00, Nucleated RBC % 0.0 12/07/20 05:02: Sodium 139, Potassium 3.7, Chloride 106, Carbon Dioxide 28, Anion Gap 5.0 L, BUN 6, Creatinine 0.8, Estimated GFR (MDRD) 103, Glucose 87, Calcium 8.4 L, Phosphorus 2.8, Magnesium 1.8, Total Bilirubin 0.3, AST 13, ALT < 10 L, Alkaline Phosphatase 82, Total Protein 6.1 L, Albumin 3.1 L, Globulin 3.0, Albumin/Globulin Ratio 1.0 12/07/20 05:02: WBC 6.4, RBC 3.53 L, Hgb 10.5 L, Hct 32.7 L, MCV 92.6, MCH 29.7, MCHC 32.1, RDW 14.4, Plt Count 285, MPV 9.8, Neut # (Auto) 3.4, Lymph # (Auto) 2.3, [place] # (Auto) 0.5, Eos # (Auto) 0.2, Baso # (Auto) 0.0, Absolute Nucleated RBC 0.00, Nucleated RBC % 0.0 12/06/20 06:44: Sodium 143, Potassium 3.6, Chloride 110, Carbon Dioxide 25, Anion Gap 8.0, BUN 10, Creatinine 0.8, Estimated GFR (MDRD) 103, Glucose 101 H, Calcium 8.7, Magnesium 2.0, Total Bilirubin 0.3, AST 12, ALT 13, Alkaline Phosphatase 90, Total Protein 6.4 L, Albumin 3.5, Globulin 2.9, Albumin/Globulin Ratio 1.2 12/06/20 06:44: WBC 8.5, RBC 3.92 L, Hgb 11.4 L, Hct 36.3 L, MCV 92.6, MCH 29.1, MCHC 31.4 L, RDW 14.5, Plt Count 339, MPV 10.2, Neut # (Auto) 4.7, Lymph # (Auto) 2.8, [place] # (Auto) 0.7, Eos # (Auto) 0.2, Baso # (Auto) 0.0, Absolute Nucleated RBC 0.00, Nucleated RBC % 0.0 12/05/20 00:28: Sodium 141, Potassium 3.8, Chloride 104, Carbon Dioxide 26, Anion Gap 11.0, BUN 15, Creatinine 0.8, Estimated GFR (MDRD) 103, Glucose 128 H, Calcium 9.6, Total Bilirubin 0.8, AST 16, ALT 16, Alkaline Phosphatase 119, Total Protein 8.6 H, Albumin 4.4, Globulin 4.2, Albumin/Globulin Ratio 1.0, Lipase 20 L 12/05/20 00:28: WBC 16.9 H, RBC 4.87, Hgb 14.2, Hct 44.7, MCV 91.8, MCH 29.2, MCHC 31.8 L, RDW 14.4, Plt Count 416, MPV 9.4, Neut # (Auto) 14.6 H, Lymph # (Auto) 1.4 L, [place] # (Auto) 0.8, Eos # (Auto) 0.1, Baso # (Auto) 0.0, Absolute Nucleated RBC 0.00, Nucleated RBC % 0.0 Fish Bones: 12/08/20 04:59 12/08/20 04:59 Home Medications and Allergies Home Medications: Ambulatory Orders diphenhydrAMINE [Benadryl] 50 mg PO HS 12/05/20 Active Medications Diphenhydramine HCl (Diphenhydramine Inj 50 Mg/Ml Vial) 25 mg IVP Q6H PRN PRN Reason: Allergy Symptoms Enoxaparin Sodium (Enoxaparin 40 Mg/0.4 Ml Syringe) 40 mg SUBQ DAILY [facility] Last Admin: 12/08/20 08:09 Dose: Not Given Documented by: Hydromorphone HCl (Hydromorphone 1 Mg/Ml Carpuject) 1 mg IVP Q1HR PRN PRN Reason: PAIN Lactated Ringer's (Lr) 1,000 mls @ 100 mls/hr IV .Q10H [facility] Last Admin: 12/07/20 23:01 Dose: 100 mls/hr Documented by: Levofloxacin (Levaquin 500 Mg/100 Ml) 500 mg in 100 mls @ 100 mls/hr IV Q24H [facility] Last Infusion: 12/08/20 10:00 Dose: Infused Documented by: Metronidazole (Flagyl 500 Mg/100 Ml) 500 mg in 100 mls @ 100 mls/hr IV Q8H [facility] Last Admin: 12/08/20 10:30 Dose: 100 mls/hr Documented by: Ondansetron HCl (Ondansetron 4 Mg/2 Ml Vial) 4 mg IVP Q6H PRN PRN Reason: Nausea / Vomiting Pantoprazole Sodium (Pantoprazole 40 Mg Vial) 40 mg IVP QDAC [facility] Last Admin: 12/08/20 05:13 Dose: 40 mg Documented by: Sodium Chloride (Sodium Chloride Flush 0.9% 10 Ml Syringe) 10 ml IVP 0100,0900,1700 [facility] Last Admin: 12/08/20 05:13 Dose: 10 ml Documented by: Sodium Chloride (Sodium Chloride Flush 0.9% 10 Ml Syringe) 10 ml IVP PRN PRN PRN Reason: NEEDED PER PROVIDER ORDERS Last Admin: 12/08/20 05:13 Dose: 10 ml Documented by: diphenhydrAMINE [Benadryl] 50 mg PO HS 12/05/20 Allergies/Adverse Reactions: Allergies Allergy/AdvReac Type Severity Reaction Status Date / Time Penicillins Allergy Rash Verified 12/04/20 23:59 Anes History & Medical History - Anesthetic History Anesthesia Complications: reports: No previous complications - Medical History Cardiovascular: reports: None Pulmonary: reports: None Gastrointestinal: reports: GERD Urinary: reports: None Neuro: reports: None Musculoskeletal: reports: None Endocrine/Autoimmune: reports: None Blood Disorders: reports: None Skin: reports: None Smoking Status: Current every day smoker History of Cancer?: No - Surgical History Eyes Ears Nose Throat (EENT): reports: Other Exam General: Alert Dental: WNL, Poor dentition, Other (poor, edentulous on top) Neck Mobility: Normal Mallampati classification: II Thyromental Distance: greater than 6 cm Cardiovascular: Regular rate Plan Anesthesia Type: MAC Consent for Procedure(s) Verified and Reviewed: Yes Code Status: Attempt Resuscitation ASA classification: 2-Mild systemic disease Is this case an emergency?: No
[2020-12-08] MEDS: LACTATED RINGERS 1,000 ML IV SCH ×2 (12:06→12:07)
[2020-12-08 13:36] LABS: NIL 0.04 IU/mL; TB1-NIL 0.02 IU/mL; TB2-NIL 0.01 IU/mL
[2020-12-08] MEDS ORDERED: PROPOFOL 500 MG/50 ML 500 MG/50 ML VIAL ONE (17:26)
[2020-12-08] MEDS ORDERED: LIDOCAINE-MPF 2% 5 ML VIAL ONE (17:27)
--- NOTE | 2020-12-08 18:46 | ANESTHESIA POST OP EVALUATION ---
Anesthesia Post Eval - Post Anesthesia Eval Vitals: Last Vital Signs Temp 36.6 C 12/08/20 18:26 Pulse 74 12/08/20 18:26 Resp 15 12/08/20 18:26 BP 117/79 12/08/20 18:26 Pulse Ox 99 12/08/20 18:26 CV Function Including HR & BP: positive: Stable Pain Control: positive: Satisfactory Nausea & Vomiting: positive: Negative Mental Status: positive: Patient Participates Respiratory Status: Airway Patent Hydration Status: Satisfactory
--- NOTE | 2020-12-08 19:22 | PROVIDER PROGRESS NOTE ---
Progress Note S/P Colonoscopy: 1. Patient was noted for redundant colon. Difficulty regarding achieving the cecum secondary to colonic redundancy. There was also significant obstruction likely malignant at the level of the ileocecal valve that precluded intubation. Counterpressure and stiffening wire was necessary to achieve the cecum and the ileocecal valve. 2. Recurrent ileitis, small bowel obstruction, and abnormal CT findings however although these of the patient's indications there was no evidence of colitis through the entirety of the examination of the patient's colon. 3. On achieving the ileocecal valve there was a large fungating mass surrounding the valve which could not be traversed in spite of multiple attempts. It could be seen through and was near obstructing. Lumen was less than 7 mm. 4. Multiple attempts were taken to biopsy with cold forceps this area which appeared malignant in nature. However this could not be achieved. Thus a hot snare biopsy was taken and retrieved using a Hill net. 5. On looking through the remnant orifice of the ileocecal valve the proximal terminal ileum appeared grossly normal. Plan going forward is as follows: 1. Patient to remain n.p.o. to be started on TPN 2. Prepare the patient for possible resection with potential end ileostomy awaiting pathology 3. Continue antibiotics 4. This is unlikely inflammatory changes alone and appears malignant and will order CT chest for continued staging.
[2020-12-09] MEDS: LACTATED RINGERS 1,000 ML IV SCH ×3 (01:37→16:56)
[2020-12-09] MEDS: metroNIDAZOLE 500 MG/100 ML 500 MG/100 ML BAG IV SCH ×3 (01:37→17:38)
[2020-12-09] MEDS: SODIUM CHLORIDE FLUSH 0.9% 10 ML SYRINGE IVP SCH ×3 (01:38→16:56)
[2020-12-09 05:24] LABS: BASOPHILS % (AUTO) 0.4 %; EOSINOPHILS # (AUTO) 0.2 10^3/uL (0.0-0.7); EOSINOPHILS % (AUTO) 2.6 %; HCT - HEMATOCRIT 33.6 % (42.0-52.0); HGB - HEMOGLOBIN 10.7 g/dL (14.0-18.0); LYMPHOCYTES # (AUTO) 2.1 10^3/uL (1.5-3.5); MEAN CORPUSCULAR HEMOGLOBIN 28.8 pg (27.0-31.0); MEAN CORPUSCULAR HGB CONC 31.8 g/dL (32.0-36.0); MEAN CORPUSCULAR VOLUME 90.6 fL (80.0-94.0); MEAN PLATELET VOLUME 9.9 fL (7.4-11.4); MONOCYTES # (AUTO) 0.5 10^3/uL (0.0-1.0); MONOCYTES % (AUTO) 7.7 %; PLT - PLATELET COUNT 304 10^3/uL (130-450); RED BLOOD COUNT 3.71 10^6/uL (4.70-6.10); WHITE BLOOD COUNT 6.8 x10^3/uL (4.8-10.8)
[2020-12-09 05:36] LABS: ALBUMIN 3.3 g/dL (3.2-5.5); ALBUMIN/GLOBULIN RATIO 1.1 (1.0-2.2); BILIRUBIN,TOTAL 0.6 mg/dL (0.2-1.0); CALCIUM 8.6 mg/dL (8.5-10.3); CREATININE 0.8 mg/dL (0.6-1.2); MAGNESIUM 2.1 mg/dL (1.7-2.8); PHOSPHORUS 3.8 mg/dL (2.5-4.6); POTASSIUM 3.7 mmol/L (3.5-5.0); TOTAL PROTEIN 6.2 g/dL (6.7-8.2)
[2020-12-09] MEDS: PANTOPRAZOLE 40 MG VIAL IVP SCH (06:12)
[2020-12-09] MEDS: ENOXAPARIN 40 MG/0.4 ML SYRINGE SUBQ SCH (07:59)
[2020-12-09] MEDS: levoFLOXacin 500 MG/100 ML 500 MG/100 ML BAG IV SCH (08:00)
--- NOTE | 2020-12-09 10:00 | CT Report ---
PROCEDURE: CHEST WO INDICATIONS: metastatic workup TECHNIQUE: Noncontrast 5 mm thick sections acquired from the pulmonary apices to the posterior costophrenic angl es. 7 mm thick coronal and sagittal MIP reformats were then acquired. For radiation dose reduction, the following was used: automated exposure control, adjustment of mA and/or kV according to patient size. COMPARISON: Chest CT without contrast, 05/16/2020. CT abdomen and pelvis with contrast, 11/28/2020. FINDINGS: Image quality: Excellent. Lungs and pleura: There is a 9 mm calcified nodule in the right lower lobe. There is trace right ple ural effusion. Bibasilar opacities are likely discoid atelectasis. No pulmonary infiltrate or consoli dation. No pleural effusions or pneumothorax. Central and peripheral airways are patent and normal in caliber. Mediastinum: Heart size is normal. Minimal coronary artery calcification. No pericardial effusion. No mediastinal adenopathy by size criteria. Thoracic aorta and central pulmonary arteries are normal in size. Esophagus is normal in caliber. No hiatal hernia. Bones and chest wall: Bilateral axillary lymphadenopathy. The largest lymph node in the right axilla measures 1.9 x 2.4. The largest lymph node in the left axilla measures 1 cm in short axis. No suspic ious bony lesions. No vertebral body compression fractures. The thyroid is normal in size. Abdomen: Visualized upper abdominal solid organs and bowel loops appear normal in the absence of con trast. IMPRESSION: 1. Bilateral axillary lymphadenopathy suspicious for metastasis. 2. Trace right pleural effusion. There are bibasilar atelectasis. 3. A calcified nodule in the right lower lobe, compatible with an old granuloma. Reviewed by: Hya Goodrich MD on 12/09/2020 8:59 AM MADHU Approved by: Hay Goodrich MD on 12/09/2020 8:59 AM AKDT Station ID: [id number]
--- NOTE | 2020-12-09 13:32 | PROVIDER PROGRESS NOTE ---
Progress Note Subjective Hospital day #4 in this 50-year-old male with recurrent right lower quadrant pain, bloody diarrhea, and terminal ileal thickening. Continues with abdominal discomfort. Repeat CT scan as listed below. CT abdomen pelvis December 06, 2020 impression: Redemonstrated mural thickening involving the terminal ileum as well as the cecum. This appears stable to mildly worsened since the prior study although the parents could be eccentric by interval decompression of the bowel loops. Per persistent diffuse dilated small bowel loops, although mildly improved since yesterday. S/P Colonoscopy: 1. Patient was noted for redundant colon. Difficulty regarding achieving the cecum secondary to colonic redundancy. There was also significant obstruction likely malignant at the level of the ileocecal valve that precluded intubation. Counterpressure and stiffening wire was necessary to achieve the cecum and the ileocecal valve. 2. Recurrent ileitis, small bowel obstruction, and abnormal CT findings however although these of the patient's indications there was no evidence of colitis through the entirety of the examination of the patient's colon. 3. On achieving the ileocecal valve there was a large fungating mass surrounding the valve which could not be traversed in spite of multiple attempts. It could be seen through and was near obstructing. Lumen was less than 7 mm. 4. Multiple attempts were taken to biopsy with cold forceps this area which appeared malignant in nature. However this could not be achieved. Thus a hot snare biopsy was taken and retrieved using a Hill net. 5. On looking through the remnant orifice of the ileocecal valve the proximal terminal ileum appeared grossly normal. Patient also status post CT of the CHEST bilateral axillary lymphadenopathy concerning for metastatic disease. Objective General Appearance: positive: No acute distress Eyes Bilateral: positive: Normal inspection ENT: positive: ENT inspection nml Neck: positive: Nml inspection Respiratory: positive: Chest non-tender, No respiratory distress, Breath sounds nml. negative: Wheezes, Rales, Rhonchi Cardiovascular: positive: Regular rate & rhythm Extremities: positive: Non-tender, Full ROM, Nml appearance Neurologic/Psychiatric: positive: Oriented x3, CN's nml (2-12) Abdomen diffusely distended. Tenderness to palpation. No rebound or guarding. Impression/Plan Hospital day #4 in this 50-year-old male with recurrent right lower quadrant pain, bloody diarrhea, and terminal ileal thickening.Denies any recent travel or sick contacts. Appears consistent with Crohn's disease versus lymphoma. Plan surgery tomorrow. (1) GI - IVF, bowel regimen, Bowel rest. Patient to remain n.p.o. to be started on TPN (2) SURGERY - Prepare the patient for possible resection with potential end ileostomy awaiting pathology (3) Renal/Lytes - continue IVF. Renal indices within normal limits. Replete electrolytes. (4) Respiratory - O2 as necessary. Continue IS. (5) Heme - Will continue with DVT ppx. H/H stable. (6) Cardiovascular - HD acceptable. (7) Neuro - Opiate sparring analgesia. Antispasmodics with Robaxin. Neuropathic agents. (8) Immune/Infectious Disease - Continue with empiric antibiotics. Stools stool studies. Will add metronidazole. Hepatitis panel and HIV negative. (9) ENDOCRINOLOGY - in the event that the patient will need immunomodulatory therapy to include steroids will obtain quant gold, hepatitis panel, HIV, amongst others especially if the patient will need long-term biologic therapy. This workup all negative thus far. Please note that voice recognition software was used to transcribe this note and inadvertent errors might persist in spite of review and editing. I am obliged to you for your attention. I am thankful to you for allowing me to participate with you in this care of this patient.
[2020-12-09] MEDS: PPN (CLINIMIX E 4.25/5) 2,000 ML with MULTIVITAMIN 10 ML IV SCH ×2 (19:12)
[2020-12-09] MEDS: FAT EMULSION 20% 250 ML IV SCH (19:12)
[2020-12-10] MEDS: metroNIDAZOLE 500 MG/100 ML 500 MG/100 ML BAG IV SCH ×3 (03:10→16:21)
[2020-12-10] MEDS: SODIUM CHLORIDE FLUSH 0.9% 10 ML SYRINGE IVP SCH ×3 (03:17→16:23)
[2020-12-10 05:42] LABS: BASOPHILS % (AUTO) 0.4 %; EOSINOPHILS # (AUTO) 0.2 10^3/uL (0.0-0.7); EOSINOPHILS % (AUTO) 2.8 %; HCT - HEMATOCRIT 33.8 % (42.0-52.0); HGB - HEMOGLOBIN 10.9 g/dL (14.0-18.0); LYMPHOCYTES # (AUTO) 2.3 10^3/uL (1.5-3.5); LYMPHOCYTES % (AUTO) 30.9 %; MEAN CORPUSCULAR HEMOGLOBIN 29.2 pg (27.0-31.0); MEAN CORPUSCULAR HGB CONC 32.2 g/dL (32.0-36.0); MEAN CORPUSCULAR VOLUME 90.6 fL (80.0-94.0); MONOCYTES # (AUTO) 0.6 10^3/uL (0.0-1.0); MONOCYTES % (AUTO) 8.1 %; NEUTROPHILS # (AUTO) 4.3 10^3/uL (1.5-6.6); NEUTROPHILS % (AUTO) 57.4 %; PLT - PLATELET COUNT 332 10^3/uL (130-450); RED BLOOD COUNT 3.73 10^6/uL (4.70-6.10); RED CELL DISTRIBUTION WIDTH 14.2 % (12.0-15.0); WHITE BLOOD COUNT 7.5 x10^3/uL (4.8-10.8)
[2020-12-10 05:57] LABS: ALBUMIN 3.4 g/dL (3.2-5.5); ALBUMIN/GLOBULIN RATIO 1.2 (1.0-2.2); BILIRUBIN,TOTAL 0.4 mg/dL (0.2-1.0); CALCIUM 8.9 mg/dL (8.5-10.3); CREATININE 0.9 mg/dL (0.6-1.2); MAGNESIUM 2.2 mg/dL (1.7-2.8); PHOSPHORUS 4.6 mg/dL (2.5-4.6); POTASSIUM 3.7 mmol/L (3.5-5.0); TOTAL PROTEIN 6.2 g/dL (6.7-8.2)
[2020-12-10] MEDS: PANTOPRAZOLE 40 MG VIAL IVP SCH (06:28)
[2020-12-10] MEDS: SODIUM CHLORIDE FLUSH 0.9% 10 ML SYRINGE IVP PRN (06:28)
[2020-12-10] MEDS ORDERED: PROPOFOL 200 MG/20 ML VIAL IVP ONE (07:27)
[2020-12-10] MEDS ORDERED: MIDAZOLAM 2 MG/2 ML VIAL ONE (07:27)
[2020-12-10] MEDS ORDERED: LIDOCAINE-MPF 2% 5 ML VIAL ONE ×2 (07:27→07:30)
[2020-12-10] MEDS ORDERED: fentaNYL 100 MCG/2 ML VIAL ONE ×3 (07:27→12:10)
[2020-12-10] MEDS ORDERED: ROCURONIUM 50 MG/5 ML VIAL ONE (07:27)
[2020-12-10] MEDS ORDERED: KETAMINE 500 MG/10 ML VIAL ONE (07:28)
[2020-12-10] MEDS ORDERED: NALOXONE 0.4 MG/ML VIAL IVP PRN (07:32)
[2020-12-10] MEDS ORDERED: ATROPINE ABBOJECT 1 MG/10 ML SYRINGE IVP PRN (07:32)
[2020-12-10] MEDS ORDERED: HYDROmorphone 0.5 MG/0.5 ML SYRINGE IVP PRN ×2 (07:32→11:43)
[2020-12-10] MEDS ORDERED: ONDANSETRON 4 MG/2 ML VIAL IVP PRN ×2 (07:32→11:37)
[2020-12-10] MEDS ORDERED: ePHEDrine 50 MG/ML VIAL IVP PRN (07:32)
[2020-12-10] MEDS ORDERED: MORPHINE 2 MG/ML CARPUJECT IVP PRN (07:32)
[2020-12-10] MEDS ORDERED: METOCLOPRAMIDE 10 MG/2 ML VIAL IVP PRN (07:32)
--- NOTE | 2020-12-10 07:32 | ANESTHESIA ---
Pre-Anesthesia VS, & Labs - Diagnosis ileocecal mass - Procedure lap colectomy, possible ileostomy Vital Signs: Temp Pulse Resp BP Pulse Ox 37.1 C 62 18 143/93 H 99 12/10/20 03:20 12/10/20 03:20 12/10/20 03:20 12/10/20 03:20 12/10/20 03:20 Height: 5 ft 9 in Weight (kg): 64 kg Body Mass Index: 20.8 BMI Classification: Healthy weight - NPO >8 hours - Lab Results Current Lab Results: Laboratory Tests 12/10/20 05:08: Sodium 144, Potassium 3.7, Chloride 105, Carbon Dioxide 28, Anion Gap 11.0, BUN 9, Creatinine 0.9, Estimated GFR (MDRD) 90, Glucose 112 H, Calcium 8.9, Phosphorus 4.6, Magnesium 2.2, Total Bilirubin 0.4, AST 15, ALT 16, Alkaline Phosphatase 84, Total Protein 6.2 L, Albumin 3.4, Globulin 2.8, Albumin/Globulin Ratio 1.2, Prealbumin 17 L, Triglycerides 111 12/10/20 05:08: WBC 7.5, RBC 3.73 L, Hgb 10.9 L, Hct 33.8 L, MCV 90.6, MCH 29.2, MCHC 32.2, RDW 14.2, Plt Count 332, MPV 10.0, Neut # (Auto) 4.3, Lymph # (Auto) 2.3, Scott # (Auto) 0.6, Eos # (Auto) 0.2, Baso # (Auto) 0.0, Absolute Nucleated RBC 0.00, Nucleated RBC % 0.0 12/09/20 23:33: POC Whole Bld Glucose 93 12/09/20 18:22: POC Whole Bld Glucose 158 H 12/09/20 05:10: Sodium 141, Potassium 3.7, Chloride 105, Carbon Dioxide 28, Anio n Gap 8.0, BUN 6, Creatinine 0.8, Estimated GFR (MDRD) 103, Glucose 90, Calcium 8.6, Phosphorus 3.8, Magnesium 2.1, Total Bilirubin 0.6, AST 13, ALT 16, Alkaline Phosphatase 86, Total Protein 6.2 L, Albumin 3.3, Globulin 2.9, Albumin/Globulin Ratio 1.1 12/09/20 05:10: WBC 6.8, RBC 3.71 L, Hgb 10.7 L, Hct 33.6 L, MCV 90.6, MCH 28.8, MCHC 31.8 L, RDW 14.0, Plt Count 304, MPV 9.9, Neut # (Auto) 4.0, Lymph # (Auto) 2.1, Scott # (Auto) 0.5, Eos # (Auto) 0.2, Baso # (Auto) 0.0, Absolute Nucleated RBC 0.00, Nucleated RBC % 0.0 12/08/20 04:59: Sodium 142, Potassium 3.8, Chloride 104, Carbon Dioxide 29, Anion Gap 9.0, BUN 5 L, Creatinine 0.8, Estimated GFR (MDRD) 103, Glucose 91, Calcium 8.6, Phosphorus 3.8, Magnesium 2.1, Total Bilirubin 0.5, AST 16, ALT 14, Alkaline Phosphatase 90, Total Protein 6.6 L, Albumin 3.3, Globulin 3.3, Albumin/Globulin Ratio 1.0 12/08/20 04:59: WBC 6.5, RBC 3.70 L, Hgb 10.9 L, Hct 33.9 L, MCV 91.6, MCH 29.5, MCHC 32.2, RDW 14.2, Plt Count 289, MPV 9.3, Neut # (Auto) 4.1, Lymph # (Auto) 1.9, Scott # (Auto) 0.4, Eos # (Auto) 0.1, Baso # (Auto) 0.0, Absolute Nucleated RBC 0.00, Nucleated RBC % 0.0 12/07/20 05:02: Sodium 139, Potassium 3.7, Chloride 106, Carbon Dioxide 28, Anion Gap 5.0 L, BUN 6, Creatinine 0.8, Estimated GFR (MDRD) 103, Glucose 87, Calcium 8.4 L, Phosphorus 2.8, Magnesium 1.8, Total Bilirubin 0.3, AST 13, ALT < 10 L, Alkaline Phosphatase 82, Total Protein 6.1 L, Albumin 3.1 L, Globulin 3.0, Albumin/Globulin Ratio 1.0 12/07/20 05:02: WBC 6.4, RBC 3.53 L, Hgb 10.5 L, Hct 32.7 L, MCV 92.6, MCH 29.7, MCHC 32.1, RDW 14.4, Plt Count 285, MPV 9.8, Neut # (Auto) 3.4, Lymph # (Auto) 2.3, Scott # (Auto) 0.5, Eos # (Auto) 0.2, Baso # (Auto) 0.0, Absolute Nucleated RBC 0.00, Nucleated RBC % 0.0 12/06/20 06:44: Sodium 143, Potassium 3.6, Chloride 110, Carbon Dioxide 25, Anion Gap 8.0, BUN 10, Creatinine 0.8, Estimated GFR (MDRD) 103, Glucose 101 H, Calcium 8.7, Magnesium 2.0, Total Bilirubin 0.3, AST 12, ALT 13, Alkaline Ph osphatase 90, Total Protein 6.4 L, Albumin 3.5, Globulin 2.9, Albumin/Globulin Ratio 1.2 12/06/20 06:44: WBC 8.5, RBC 3.92 L, Hgb 11.4 L, Hct 36.3 L, MCV 92.6, MCH 29.1, MCHC 31.4 L, RDW 14.5, Plt Count 339, MPV 10.2, Neut # (Auto) 4.7, Lymph # (Auto ) 2.8, Scott # (Auto) 0.7, Eos # (Auto) 0.2, Baso # (Auto) 0.0, Absolute Nucleated RBC 0.00, Nucleated RBC % 0.0 12/05/20 00:28: Sodium 141, Potassium 3.8, Chloride 104, Carbon Dioxide 26, Anion Gap 11.0, BUN 15, Creatinine 0.8, Estimated GFR (MDRD) 103, Glucose 128 H, Calcium 9.6, Total Bilirubin 0.8, AST 16, ALT 16, Alkaline Phosphatase 119, Total Protein 8.6 H, Albumin 4.4, Globulin 4.2, Albumin/Globulin Ratio 1.0, Lipase 20 L 12/05/20 00:28: WBC 16.9 H, RBC 4.87, Hgb 14.2, Hct 44.7, MCV 91.8, MCH 29.2, MCHC 31.8 L, RDW 14.4, Plt Count 416, MPV 9.4, Neut # (Auto) 14.6 H, Lymph # (Auto) 1.4 L, Scott # (Auto) 0.8, Eos # (Auto) 0.1, Baso # (Auto) 0.0, Absolute Nucleated RBC 0.00, Nucleated RBC % 0.0 Fish Bones: 12/10/20 05:08 12/10/20 05:08 Home Medications and Allergies Home Medications: Ambulatory Orders diphenhydrAMINE [Benadryl] 50 mg PO HS 12/05/20 Active Medications Diphenhydramine HCl (Diphenhydramine Inj 50 Mg/Ml Vial) 25 mg IVP Q6H PRN PRN Reason: Allergy Symptoms Enoxaparin Sodium (Enoxaparin 40 Mg/0.4 Ml Syringe) 40 mg SUBQ DAILY [facility] Last Admin: 12/09/20 07:59 Dose: 40 mg Documented by: Hydromorphone HCl (Hydromorphone 1 Mg/Ml Carpuject) 1 mg IVP Q1HR PRN PRN Reason: PAIN Lactated Ringer's (Lr) 1,000 mls @ 100 mls/hr IV .Q10H [facility] Last Infusion: 12/09/20 19:11 Dose: 0 mls/hr Documented by: Levofloxacin (Levaquin 500 Mg/100 Ml) 500 mg in 100 mls @ 100 mls/hr IV Q24H [facility] Last Infusion: 12/09/20 10:01 Dose: Infused Documented by: Metronidazole (Flagyl 500 Mg/100 Ml) 500 mg in 100 mls @ 100 mls/hr IV Q8H [facility] Last Infusion: 12/10/20 04:10 Dose: Infused Documented by: Multivitamins 10 ml/ Amino (Acids/Electrolytes/Dextrose) 2,010 mls @ 83 mls/hr IV TPN/PPN [facility] Last Admin: 12/09/20 19:12 Dose: 83 mls/hr Documented by: Fat Emulsion Intravenous (Intralipid 20%) 250 mls @ 21 mls/hr IV .[id number] [facility] Last Infusion: 12/10/20 07:00 Dose: Infused Documented by: Ondansetron HCl (Ondansetron 4 Mg/2 Ml Vial) 4 mg IVP Q6H PRN PRN Reason: Nausea / Vomiting Pantoprazole Sodium (Pantoprazole 40 Mg Vial) 40 mg IVP QDAC [facility] Last Admin: 12/10/20 06:28 Dose: 40 mg Documented by: Sodium Chloride (Sodium Chloride Flush 0.9% 10 Ml Syringe) 10 ml IVP 0100,0900,1700 [facility] Last Admin: 12/10/20 03:17 Dose: 10 ml Documented by: Sodium Chloride (Sodium Chloride Flush 0.9% 10 Ml Syringe) 10 ml IVP PRN PRN PRN Reason: NEEDED PER PROVIDER ORDERS Last Admin: 12/10/20 06:28 Dose: 10 ml Documented by: diphenhydrAMINE [Benadryl] 50 mg PO HS 12/05/20 Allergies/Adverse Reactions: Allergies Allergy/AdvReac Type Severity Reaction Status Date / Time Penicillins Allergy Rash Verified 12/04/20 23:59 Anes History & Medical History - Anesthetic History Anesthesia Complications: reports: No previous complications Family history of Anesthesia Complications: Denies Family history of Malignant Hyperthermia: Denies - Medical History Cardiovascular: reports: None Pulmonary: reports: None Gastrointestinal: reports: GERD Urinary: reports: None Neuro: reports: None Musculoskeletal: reports: None Endocrine/Autoimmune: reports: None Blood Disorders: reports: None Skin: reports: None Smoking Status: Current every day smoker - Surgical History Eyes Ears Nose Throat (EENT): reports: Other Exam General: Alert, Oriented x3, Cooperative Dental: WNL, Poor dentition, Other (poor, edentulous on top) Mouth Openin Fingerbreadth Neck Mobility: Normal Mallampati classification: II Thyromental Distance: 4-6 cm Respiratory: Lungs clear Plan Anesthesia Type: General, Transverse Abdominis Plane (TAP) Block, Other (central line placement in OR) Regional Block: Per Surgeon's request for Post Op pain control Consent for Procedure(s) Verified and Reviewed: Yes Code Status: Attempt Resuscitation ASA classification: 2-Mild systemic disease Is this case an emergency?: No
[2020-12-10] MEDS ORDERED: BUPIVACAINE 0.25% PF 30 ML VIAL ONE (07:46)
[2020-12-10] MEDS ORDERED: LIDOCAINE 2%-EPI 1:100000 20 ML MDV ONE (07:46)
[2020-12-10] MEDS ORDERED: LACTATED RINGERS 1,000 ML IV SCH (08:00)
[2020-12-10] MEDS: LACTATED RINGERS 1,000 ML IV SCH (08:22)
[2020-12-10] MEDS: FAT EMULSION 20% 250 ML IV SCH ×2 (08:22→19:30)
[2020-12-10] MEDS: levoFLOXacin 500 MG/100 ML 500 MG/100 ML BAG IV SCH (08:23)
[2020-12-10] MEDS: ENOXAPARIN 40 MG/0.4 ML SYRINGE SUBQ SCH (08:23)
[2020-12-10] MEDS ORDERED: ePHEDrine 50 MG/ML VIAL IVP ONE (09:28)
--- NOTE | 2020-12-10 09:53 | ANESTHESIA PROCEDURE NOTE ---
Anesth Central Line Template - Central Line Central Line Preparation: Consent Obtained, Time out completed, Ultrasound used, Sterile prep and drape Central line location: Right Basilic Central line type: PICC Double Lumen (5FR) Central line catheter tip site resides: Superior vena cava (SVC) Central line aftercare: Secured, Placement confirmed, No complications, Pt tolerated well Other Info/Details: After time out, right arm prepped with chlorohexadine. Full drape, sterile gown/gloves, mask utilized. Right basilic vein imaged using ultrasound and accessed with 20G needle. Wire advanced with ease. Peel away sheath inserted over wire and a #5fr double lumen PICC was inserted. PICC was trimmed to 49cm. Wire tracker shows tip to heads towards heart. Sheath removed and 3cm left exposed. Both ports aspirate heme and flush with ease. Line secured. Initial chest xray shows tip in the right atrium, PICC line retracted 9cm and new xray shows tip in distal SVC.
[2020-12-10] MEDS ORDERED: ROPIVACAINE 0.5% PF 20 ML AMPULE ONE (10:43)
[2020-12-10] MEDS ORDERED: ACETAMINOPHEN 1,000 MG/100 ML 100 ML IV ONE (11:30)
[2020-12-10] MEDS ORDERED: NEOSTIGMINE 1 MG/1 ML 10 ML MDV ONE (11:33)
[2020-12-10] MEDS ORDERED: GLYCOPYRROLATE 1 MG/5 ML VIAL ONE (11:33)
[2020-12-10] MEDS ORDERED: oxyCODONE 5 MG TABLET PO PRN (11:37)
--- NOTE | 2020-12-10 11:47 | OPERATIVE REPORT ---
Operative Report - General Admit Date: 12/07/20 Procedure Date: 12/10/20 Planned Procedure: 1. Diagnostic laparoscopy 2. Laparoscopic assisted right hemicolectomy 3. Possible open right colectomy 4. Possible stoma 5. Other indicated procedures Pre-Op Diagnosis: Small bowel obstruction; cecal mass; abdominal pain Procedure Performed: 1. Diagnostic laparoscopy 2. Laparoscopic adhesiolysis 3. Laparoscopic assisted right hemicolectomy 4. Laparoscopic assisted omental flap 5. Extracorporeal [id number] functional end-to-end isoperistaltic anastomosis 6. Drain placement 7. Tap block per anesthesia 8. PICC line per anesthesia Post Op Diagnosis: Same; no hepatic metastases grossly; no omental metastases grossly - Procedure Note Primary Surgeon: Hernan Secondary Surgeon: Jerilyn Anesthesia Provider: Hailee Anesthesia Technique: General ET tube, Regional block Pathology: 1. Right colon mass/cecal mass sent in RPMI to rule out lymphoma 2. Small bowel, cecum, appendix, and ascending with transverse colon 3. Omentum Estimated Blood Loss (mL): 50 Drain/Tube Type: Tom drain Indications: 1. Obstructing cecal mass noted on colonoscopy encompassing the ileocecal valve not traversable 2. Admitted with terminal ileitis and recurrent abdominal pain by imaging 3. Failure of resolution of symptoms 4. Concern for possible lymphoma given imaging with bilateral axillary lymphadenopathy 5. Need for resection and pathology. Findings: See operative report below Complications: None - Other Other Information/Narrative: Pending final report
[2020-12-10] MEDS ORDERED: LACTATED RINGERS 1,000 ML IV ONE (12:00)
[2020-12-10] MEDS ORDERED: METOCLOPRAMIDE 10 MG/2 ML VIAL IVP SCH (12:00)
[2020-12-10] MEDS ORDERED: D5NS W/20 MEQ KCL 1,000 ML IV SCH (12:00)
[2020-12-10] MEDS: fentaNYL 100 MCG/2 ML VIAL IVP PRN ×2 (12:04→12:24)
[2020-12-10] MEDS ORDERED: ONDANSETRON 4 MG/2 ML VIAL ONE (12:10)
[2020-12-10] MEDS ORDERED: HYDROmorphone 1 MG/ML CARPUJECT ONE (12:10)
--- NOTE | 2020-12-10 12:30 | ANESTHESIA POST OP EVALUATION ---
Anesthesia Post Eval - Post Anesthesia Eval Vitals: Last Vital Signs Temp 36.9 C 12/10/20 12:06 Pulse 84 12/10/20 12:20 Resp 14 12/10/20 12:20 BP 146/86 H 12/10/20 12:20 Pulse Ox 97 12/10/20 12:20 CV Function Including HR & BP: positive: Stable Pain Control: positive: Satisfactory Nausea & Vomiting: positive: Negative Mental Status: positive: Baseline Respiratory Status: Airway Patent Hydration Status: Satisfactory Anesthesia Complications: positive: None
--- NOTE | 2020-12-10 12:38 | XRAY Report ---
PROCEDURE: Chest for Line Placement INDICATIONS: New PICC line TECHNIQUE: One view of the chest was acquired. COMPARISON: 12/05/2020 FINDINGS: Surgical changes and devices: A right arm PICC line has been placed. The tip of the PICC line project s to the inferior aspect of the right atrium. Retraction by approximately 9 cm is suggested. Lungs and pleura: No pleural effusions or pneumothorax. Patchy bibasilar atelectasis. Mediastinum: Mediastinal contours appear normal. Heart size is normal. Bones and chest wall: No suspicious bony lesions. Overlying soft tissues appear unremarkable. IMPRESSION: 1. Suggest retraction of right arm PICC line by approximately 9 cm. 2. Patchy bibasilar atelectasis. Reviewed by: Jj Coleman MD on 12/10/2020 12:36 PM PDT Approved by: Jj Coleman MD on 12/10/2020 12:36 PM PDT Station ID: [id number]
[2020-12-10] MEDS: KETOROLAC 15 MG/ML VIAL IVP SCH ×2 (13:00→17:18)
[2020-12-10] MEDS: ACETAMINOPHEN 1,000 MG/100 ML 100 ML IV SCH ×2 (13:00→17:18)
[2020-12-10] MEDS: methocarbamoL 500 MG TABLET PO SCH ×2 (13:03→17:18)
--- NOTE | 2020-12-10 16:22 | XRAY Report ---
PROCEDURE: Chest for Line Placement INDICATIONS: PICC line placement verification TECHNIQUE: One view of the chest was acquired. COMPARISON: Chest radiograph from earlier same day FINDINGS: Surgical changes and devices: Right upper extremity PICC has been suggested in positioning. It has be en retracted and the tip now projects over the mid SVC. Lungs and pleura: No pleural effusions or pneumothorax. Stable appearance of patchy bibasilar opacit ies more pronounced on the right. Mediastinum: Mediastinal contours appear normal. Heart size is no rmal. Bones and chest wall: No suspicious bony lesions. Overlying soft tissues appear unremarkable. IMPRESSION: Interval repositioning of right upper extremity PICC with the tip now projecting over the mid SVC. Unchanged appearance of patchy bibasilar opacities. Reviewed by: Christopher Tidwell MD on 12/10/2020 4:21 PM PDT Approved by: Christopher Tidwell MD on 12/10/2020 4:21 PM PDT Station ID: [id number]
--- NOTE | 2020-12-10 18:22 | CONSULTATION NOTE ---
Consultation Report: 1615 PICC line pulled back 9cm per radiologist recommendation. Performed in sterile fashion, with new sterile dressing applied post reposition
[2020-12-10] MEDS: PPN (CLINIMIX E 4.25/5) 2,000 ML with MULTIVITAMIN 10 ML IV SCH ×2 (19:30)
[2020-12-10] MEDS ORDERED: INSULIN ASPART 300 UNIT/3 ML PEN SUBQ SCH (21:00)
[2020-12-10] MEDS: polyethylene glycoL 3350 17 GM PACKET PO SCH (21:35)
[2020-12-10] MEDS: DOCUSATE SODIUM 100 MG CAPSULE PO SCH (21:35)
[2020-12-11] MEDS: ACETAMINOPHEN 1,000 MG/100 ML 100 ML IV SCH ×2 (01:00→06:55)
[2020-12-11] MEDS: methocarbamoL 500 MG TABLET PO SCH ×5 (01:10→23:45)
[2020-12-11] MEDS: KETOROLAC 15 MG/ML VIAL IVP SCH ×5 (01:10→23:45)
[2020-12-11] MEDS: SODIUM CHLORIDE FLUSH 0.9% 10 ML SYRINGE IVP PRN (01:33)
[2020-12-11] MEDS: SODIUM CHLORIDE FLUSH 0.9% 10 ML SYRINGE IVP SCH ×4 (01:33→23:45)
[2020-12-11] MEDS: metroNIDAZOLE 500 MG/100 ML 500 MG/100 ML BAG IV SCH ×2 (01:39→10:03)
[2020-12-11] MEDS: PANTOPRAZOLE 40 MG VIAL IVP SCH (06:47)
[2020-12-11 07:46] LABS: BASOPHILS % (AUTO) 0.2 %; EOSINOPHILS % (AUTO) 0.4 %; HCT - HEMATOCRIT 33.1 % (42.0-52.0); HGB - HEMOGLOBIN 10.9 g/dL (14.0-18.0); LYMPHOCYTES # (AUTO) 1.9 10^3/uL (1.5-3.5); LYMPHOCYTES % (AUTO) 18.2 %; MEAN CORPUSCULAR HEMOGLOBIN 29.5 pg (27.0-31.0); MEAN CORPUSCULAR HGB CONC 32.9 g/dL (32.0-36.0); MEAN CORPUSCULAR VOLUME 89.7 fL (80.0-94.0); MEAN PLATELET VOLUME 10.4 fL (7.4-11.4); MONOCYTES % (AUTO) 9.3 %; NEUTROPHILS # (AUTO) 7.4 10^3/uL (1.5-6.6); NEUTROPHILS % (AUTO) 71.5 %; PLT - PLATELET COUNT 315 10^3/uL (130-450); RED BLOOD COUNT 3.69 10^6/uL (4.70-6.10); WHITE BLOOD COUNT 10.4 x10^3/uL (4.8-10.8)
[2020-12-11 07:58] LABS: ALBUMIN 3.1 g/dL (3.2-5.5); ALKALINE PHOSPHATASE 70 IU/L (42-121); ALT ALANINE AMINOTRANSFERASE 17 IU/L (10-60); AST ASPARTATE AMINOTRANSFERASE 15 IU/L (10-42); BILIRUBIN,TOTAL < 0.2 mg/dL (0.2-1.0); BUN - BLOOD UREA NITROGEN 14 mg/dL (6-20); CALCIUM 8.6 mg/dL (8.5-10.3); CARBON DIOXIDE - CO2 25 mmol/L (21-32); CHLORIDE 103 mmol/L (101-111); CREATININE 0.8 mg/dL (0.6-1.2); GFR - MDRD 103 (>89); GLUCOSE 129 mg/dL (70-100); MAGNESIUM 2.2 mg/dL (1.7-2.8); PHOSPHORUS 4.3 mg/dL (2.5-4.6); POTASSIUM 3.7 mmol/L (3.5-5.0); SODIUM 138 mmol/L (135-145); TOTAL PROTEIN 6.1 g/dL (6.7-8.2)
[2020-12-11] MEDS: INSULIN ASPART 300 UNIT/3 ML PEN SUBQ SCH ×4 (07:58→21:10)
[2020-12-11] MEDS: polyethylene glycoL 3350 17 GM PACKET PO SCH ×2 (08:54→21:10)
[2020-12-11] MEDS: DOCUSATE SODIUM 100 MG CAPSULE PO SCH ×2 (08:54→21:10)
[2020-12-11] MEDS: levoFLOXacin 500 MG/100 ML 500 MG/100 ML BAG IV SCH (08:54)
[2020-12-11] MEDS: ENOXAPARIN 40 MG/0.4 ML SYRINGE SUBQ SCH (08:54)
[2020-12-11] MEDS ORDERED: DEXMEDETOMIDINE 200 MCG/2 ML VIAL ONE (10:31)
--- NOTE | 2020-12-11 15:12 | PROVIDER PROGRESS NOTE ---
Progress Note Subjective No acute complaints Procedure Performed: 1. Diagnostic laparoscopy 2. Laparoscopic adhesiolysis 3. Laparoscopic assisted right hemicolectomy 4. Laparoscopic assisted omental flap 5. Extracorporeal [id number] functional end-to-end isoperistaltic anastomosis 6. Drain placement 7. Tap block per anesthesia 8. PICC line per anesthesia Objective Afebrile hemodynamically acceptable General Appearance: positive: No acute distress Eyes Bilateral: positive: Normal inspection ENT: positive: ENT inspection nml Neck: positive: Nml inspection Respiratory: positive: Chest non-tender, No respiratory distress, Breath sounds nml. negative: Wheezes, Rales, Rhonchi Cardiovascular: positive: Regular rate & rhythm Extremities: positive: Non-tender, Full ROM, Nml appearance Neurologic/Psychiatric: positive: Oriented x3, CN's nml (2-12) Appropriately tender to palpation. Drain is serosanguineous Impression/Plan Postoperative day #1 (1) GI - IVF, bowel regimen, advance diet as tolerated. GI ppx. Anticipate il eus. Opiate sparring analgesia. (2) SURGERY - continue drain. Continue Prevena wound VAC. (3) Renal/Lytes - continue IVF. Renal indices within normal limits. (4) Respiratory - O2 as necessary. Continue IS. (5) Heme - Will continue with DVT ppx. H/H stable. (6) Cardiovascular - HD acceptable. (7) Neuro - Opiate sparring analgesia. Antispasmodics with Robaxin. Toradol. Neuropathic agents. (8) Immune/Infectious Disease - perioperative antibiotic
[2020-12-11] MEDS ORDERED: TPN (CLINIMIX E 5/15) 2,000 ML with MULTIVITAMIN 10 ML, TRACE ELEMENTS 1 ML IV SCH ×3 (19:00)
[2020-12-11] MEDS ORDERED: FAT EMULSION 20% 250 ML IV SCH (19:00)
[2020-12-11] MEDS: ACETAMINOPHEN 500 MG TABLET PO PRN (21:10)
[2020-12-12] MEDS: KETOROLAC 15 MG/ML VIAL IVP SCH ×4 (05:53→23:55)
[2020-12-12] MEDS: methocarbamoL 500 MG TABLET PO SCH ×4 (05:54→23:55)
[2020-12-12] MEDS: PANTOPRAZOLE 40 MG VIAL IVP SCH (06:08)
[2020-12-12 06:26] LABS: BASOPHILS % (AUTO) 0.3 %; EOSINOPHILS # (AUTO) 0.2 10^3/uL (0.0-0.7); EOSINOPHILS % (AUTO) 2.1 %; HCT - HEMATOCRIT 37.2 % (42.0-52.0); HGB - HEMOGLOBIN 12.2 g/dL (14.0-18.0); LYMPHOCYTES # (AUTO) 2.3 10^3/uL (1.5-3.5); LYMPHOCYTES % (AUTO) 26.1 %; MEAN CORPUSCULAR HEMOGLOBIN 29.7 pg (27.0-31.0); MEAN CORPUSCULAR HGB CONC 32.8 g/dL (32.0-36.0); MEAN CORPUSCULAR VOLUME 90.5 fL (80.0-94.0); MEAN PLATELET VOLUME 11.2 fL (7.4-11.4); MONOCYTES # (AUTO) 0.5 10^3/uL (0.0-1.0); NEUTROPHILS # (AUTO) 5.8 10^3/uL (1.5-6.6); NEUTROPHILS % (AUTO) 64.6 %; PLT - PLATELET COUNT 173 10^3/uL (130-450); RED BLOOD COUNT 4.11 10^6/uL (4.70-6.10); RED CELL DISTRIBUTION WIDTH 14.4 % (12.0-15.0); WHITE BLOOD COUNT 8.9 x10^3/uL (4.8-10.8)
[2020-12-12 06:34] LABS: ALBUMIN 3.2 g/dL (3.2-5.5); BILIRUBIN,TOTAL 0.6 mg/dL (0.2-1.0); CALCIUM 8.5 mg/dL (8.5-10.3); CREATININE 0.7 mg/dL (0.6-1.2); MAGNESIUM 2.1 mg/dL (1.7-2.8); PHOSPHORUS 3.4 mg/dL (2.5-4.6); POTASSIUM 3.9 mmol/L (3.5-5.0); TOTAL PROTEIN 6.3 g/dL (6.7-8.2)
[2020-12-12] MEDS: INSULIN ASPART 300 UNIT/3 ML PEN SUBQ SCH ×4 (07:35→20:35)
[2020-12-12] MEDS: polyethylene glycoL 3350 17 GM PACKET PO SCH ×2 (08:52→20:34)
[2020-12-12] MEDS: SODIUM CHLORIDE FLUSH 0.9% 10 ML SYRINGE IVP SCH ×3 (08:52→23:56)
[2020-12-12] MEDS: SODIUM CHLORIDE FLUSH 0.9% 10 ML SYRINGE IVP PRN ×2 (08:52→23:56)
[2020-12-12] MEDS: ENOXAPARIN 40 MG/0.4 ML SYRINGE SUBQ SCH (08:52)
[2020-12-12] MEDS: DOCUSATE SODIUM 100 MG CAPSULE PO SCH ×2 (08:52→20:35)
--- NOTE | 2020-12-12 13:26 | PROVIDER PROGRESS NOTE ---
Subjective - General Admit Date: 12/07/20 Procedure Date: 12/10/20 Post Op Days: 2 Procedure Performed: Laparoscopic right hemicolectomy - Review of Systems Wound/Incisions: positive: Healing well General: positive: No symptoms HEENT: positive: No symptoms Pulmonary: positive: No symptoms Cardiovascular: positive: No symptoms Gastrointestinal: positive: No symptoms Genitourinary: positive: No symptoms Musculoskeletal: positive: No symptoms All Other Systems: positive: Reviewed and negative - Other Other Information/Narrative: Daryn reports that he feels pretty well. He does not feel like he needs any more pain medicine than he is getting but he feels like his pain is reasonably well controlled.He has had 2 bowel movements today. He is hungry but not terribly so.Already and clear liquids without difficulty. Denies any nausea. Objective - Patient Data Reviewed Vital Signs: Yes Vital Signs: Vital Signs x48h Temp Pulse Resp BP Pulse Ox 12/12/20 07:46 36.8 C 83 12 134/79 H 95 Weight: Weight 12/10/20 12/11/20 12/12/20 23:59 23:59 23:59 Weight (kg) 64 kg 64.5 kg 66 kg Intake & Output: Intake and Output Totals x24h 12/10/20 12/11/20 12/12/20 23:59 23:59 23:59 Intake Total 3052.650 4912.783 533 Output Total 1355 2230 180 Balance 2596.776 2579.783 353 - Lab Results Lab Results: 12/12/20 06:18 12/12/20 06:18 Other Lab Results: Lab Results x24hrs 12/12/20 12/12/20 12/12/20 Range/Units 11:08 07:31 06:18 WBC 8.9 (4.8-10.8) x10^3/uL RBC 4.11 L (4.70-6.10) 10^6/uL Hgb 12.2 L (14.0-18.0) g/dL Hct 37.2 L (42.0-52.0) % MCV 90.5 (80.0-94.0) fL MCH 29.7 (27.0-31.0) pg MCHC 32.8 (32.0-36.0) g/dL RDW 14.4 (12.0-15.0) % Plt Count 173 (130-450) 10^3/uL MPV 11.2 (7.4-11.4) fL Neut # (Auto) 5.8 (1.5-6.6) 10^3/uL Lymph # (Auto) 2.3 (1.5-3.5) 10^3/uL Hancock # (Auto) 0.5 (0.0-1.0) 10^3/uL Eos # (Auto) 0.2 (0.0-0.7) 10^3/uL Baso # (Auto) 0.0 (0.0-0.1) 10^3/uL Absolute Nucleated RBC 0.00 x10^3/uL Nucleated RBC % 0.0 /100WBC Sodium (135-145) mmol/L Potassium (3.5-5.0) mmol/L Chloride (101-111) mmol/L Carbon Dioxide (21-32) mmol/L Anion Gap (6-13) BUN (6-20) mg/dL Creatinine (0.6-1.2) mg/dL Estimated GFR (MDRD) (>89) Glucose (70-100) mg/dL POC Whole Bld Glucose 138 H 136 H (70 - 100) mg/dL Calcium (8.5-10.3) mg/dL Phosphorus (2.5-4.6) mg/dL Magnesium (1.7-2.8) mg/dL Total Bilirubin (0.2-1.0) mg/dL AST (10-42) IU/L ALT (10-60) IU/L Alkaline Phosphatase (42-121) IU/L Total Protein (6.7-8.2) g/dL Albumin (3.2-5.5) g/dL Globulin (2.1-4.2) g/dL Albumin/Globulin Ratio (1.0-2.2) Prealbumin (18-45) mg/dL Triglycerides ( - 149) mg/dL 12/12/20 12/11/20 12/11/20 Range/Units 06:18 20:32 16:37 WBC (4.8-10.8) x10^3/uL RBC (4.70-6.10) 10^6/uL Hgb (14.0-18.0) g/dL Hct (42.0-52.0) % MCV (80.0-94.0) fL MCH (27.0-31.0) pg MCHC (32.0-36.0) g/dL RDW (12.0-15.0) % Plt Count (130-450) 10^3/uL MPV (7.4-11.4) fL Neut # (Auto) (1.5-6.6) 10^3/uL Lymph # (Auto) (1.5-3.5) 10^3/uL Hancock # (Auto) (0.0-1.0) 10^3/uL Eos # (Auto) (0.0-0.7) 10^3/uL Baso # (Auto) (0.0-0.1) 10^3/uL Absolute Nucleated RBC x10^3/uL Nucleated RBC % /100WBC Sodium 140 (135-145) mmol/L Potassium 3.9 (3.5-5.0) mmol/L Chloride 106 (101-111) mmol/L Carbon Dioxide 25 (21-32) mmol/L Anion Gap 9.0 (6-13) BUN 14 (6-20) mg/dL Creatinine 0.7 (0.6-1.2) mg/dL Estimated GFR (MDRD) 120 (>89) Glucose 115 H (70-100) mg/dL POC Whole Bld Glucose 140 H 116 H (70 - 100) mg/dL Calcium 8.5 (8.5-10.3) mg/dL Phosphorus 3.4 (2.5-4.6) mg/dL Magnesium 2.1 (1.7-2.8) mg/dL Total Bilirubin 0.6 (0.2-1.0) mg/dL AST 27 (10-42) IU/L ALT 25 (10-60) IU/L Alkaline Phosphatase 80 (42-121) IU/L Total Protein 6.3 L (6.7-8.2) g/dL Albumin 3.2 (3.2-5.5) g/dL Globulin 3.1 (2.1-4.2) g/dL Albumin/Globulin Ratio 1.0 (1.0-2.2) Prealbumin 18 (18-45) mg/dL Triglycerides 142 ( - 149) mg/dL - Current Medications Current Medications: Current Medications Generic Name Dose Route Start Last Admin Trade Name Freq PRN Reason Stop Dose Admin Acetaminophen 500 mg 12/11/20 09:51 12/11/20 21:10 Acetaminophen 500 Mg Tablet PO 500 mg Q4HR PRN Administration Pain or Fever > 38C (100.4F) Docusate Sodium 100 mg 12/10/20 21:00 12/12/20 08:52 Docusate Sodium 100 Mg Capsule PO Not Given BID [facility] Enoxaparin Sodium 40 mg 12/05/20 09:00 12/12/20 08:52 Enoxaparin 40 Mg/0.4 Ml Syringe SUBQ 40 mg DAILY [facility] Administration Hydromorphone HCl 0.5 mg 12/10/20 11:43 12/10/20 12:37 Hydromorphone 0.5 Mg/0.5 Ml Syringe IVP 0.5 mg Q2H PRN Administration PAIN Fat Emulsion Intravenous 250 mls @ 21 mls/hr 12/11/20 19:00 12/12/20 07:38 Intralipid 20% IV Infused 1900 [facility] Infusion Multivitamins 10 ml/ TRACE 2,011 mls @ 83 mls/hr 12/11/20 19:00 12/11/20 23:05 ELEMENTS 1 ml/ Amino Ac/ IV 83 mls/hr Electrol/Dextrose/Calcium 1900 [facility] Infusion Insulin Aspart 1 - 9 unit 12/11/20 08:00 12/12/20 11:11 Insulin Aspart 300 Unit/3 Ml Pen SUBQ Not Given 0800,1200,1700,2100 [facility] Protocol Ketorolac Tromethamine 15 mg 12/10/20 12:00 12/12/20 12:22 Ketorolac 15 Mg/Ml Vial IVP 12/15/20 11:59 15 mg Q6HR [facility] Administration Methocarbamol 500 mg 12/10/20 12:00 12/12/20 12:22 Methocarbamol 500 Mg Tablet PO 500 mg Q6HR [facility] Administration Pantoprazole Sodium 40 mg 12/05/20 07:00 12/12/20 06:08 Pantoprazole 40 Mg Vial IVP 40 mg QDAC [facility] Administration Polyethylene Glycol 17 gm 12/10/20 21:00 12/12/20 08:52 Polyethylene Glycol 3350 17 Gm Packet PO Not Given BID [facility] Sodium Chloride 10 ml 12/05/20 09:00 12/12/20 08:52 Sodium Chloride Flush 0.9% 10 Ml Syringe IVP 10 ml 0100,0900,1700 [facility] Administration Sodium Chloride 10 ml 12/05/20 02:23 12/12/20 08:52 Sodium Chloride Flush 0.9% 10 Ml Syringe IVP 10 ml PRN PRN Administration NEEDED PER PROVIDER ORDERS - Physical Exam Wound/Incisions: positive: Healing well General Appearance: positive: No acute distress, Alert Eyes Bilateral: positive: Normal inspection, PERRL, EOMI ENT: positive: ENT inspection nml Neck: positive: Nml inspection Respiratory: positive: Chest non-tender, No respiratory distress, Breath sounds nml Cardiovascular: positive: Regular rate & rhythm Abdomen: positive: Tenderness, Other (Mildly distended with active bowel sounds) Back: positive: Nml inspection. negative: CVA tenderness (R), CVA tenderness (L) Skin: positive: Color nml Extremities: positive: Non-tender Neurologic/Psychiatric: positive: Oriented x3 ABX Reporting Has patient been on IV antibiotics over the past 48 hours?: No Impression/Plan - Problem List Problem List: Postop day 2 after laparoscopic right hemicolectomy for malignancy. 1. Initiate soft mechanical diet. 2. Continue current pain management regimen 3. He can discontinue TPN after this bag.
[2020-12-13] MEDS: SODIUM CHLORIDE FLUSH 0.9% 10 ML SYRINGE IVP PRN ×5 (06:18→23:56)
[2020-12-13] MEDS: methocarbamoL 500 MG TABLET PO SCH ×4 (06:18→23:55)
[2020-12-13] MEDS: KETOROLAC 15 MG/ML VIAL IVP SCH (06:18)
[2020-12-13 06:22] LABS: BASOPHILS # (AUTO) 0.1 10^3/uL (0.0-0.1); BASOPHILS % (AUTO) 0.5 %; EOSINOPHILS # (AUTO) 0.4 10^3/uL (0.0-0.7); EOSINOPHILS % (AUTO) 3.5 %; HGB - HEMOGLOBIN 11.9 g/dL (14.0-18.0); LYMPHOCYTES # (AUTO) 2.5 10^3/uL (1.5-3.5); LYMPHOCYTES % (AUTO) 23.7 %; MEAN CORPUSCULAR HGB CONC 32.2 g/dL (32.0-36.0); MEAN PLATELET VOLUME 10.1 fL (7.4-11.4); MONOCYTES # (AUTO) 0.9 10^3/uL (0.0-1.0); MONOCYTES % (AUTO) 8.7 %; NEUTROPHILS # (AUTO) 6.7 10^3/uL (1.5-6.6); NEUTROPHILS % (AUTO) 62.7 %; PLT - PLATELET COUNT 372 10^3/uL (130-450); RED BLOOD COUNT 4.11 10^6/uL (4.70-6.10); RED CELL DISTRIBUTION WIDTH 14.5 % (12.0-15.0); WHITE BLOOD COUNT 10.7 x10^3/uL (4.8-10.8)
[2020-12-13] MEDS: PANTOPRAZOLE 40 MG VIAL IVP SCH (06:28)
[2020-12-13] MEDS: SODIUM CHLORIDE FLUSH 0.9% 10 ML SYRINGE IVP SCH ×3 (06:29→23:55)
[2020-12-13 06:33] LABS: ALBUMIN 3.2 g/dL (3.2-5.5); BILIRUBIN,TOTAL 0.5 mg/dL (0.2-1.0); CALCIUM 8.6 mg/dL (8.5-10.3); CREATININE 0.8 mg/dL (0.6-1.2); MAGNESIUM 2.1 mg/dL (1.7-2.8); PHOSPHORUS 3.9 mg/dL (2.5-4.6); POTASSIUM 3.8 mmol/L (3.5-5.0); TOTAL PROTEIN 6.4 g/dL (6.7-8.2)
[2020-12-13] MEDS: polyethylene glycoL 3350 17 GM PACKET PO SCH ×2 (07:51→20:17)
[2020-12-13] MEDS: DOCUSATE SODIUM 100 MG CAPSULE PO SCH ×2 (07:51→20:17)
[2020-12-13] MEDS: INSULIN ASPART 300 UNIT/3 ML PEN SUBQ SCH (07:58)
[2020-12-13] MEDS: ENOXAPARIN 40 MG/0.4 ML SYRINGE SUBQ SCH (10:10)
--- NOTE | 2020-12-13 11:21 | PROVIDER PROGRESS NOTE ---
Subjective - General Admit Date: 12/07/20 Procedure Date: 12/10/20 Post Op Days: 3 Procedure Performed: Laparoscopic right hemicolectomy - Review of Systems Wound/Incisions: positive: Healing well General: positive: No symptoms HEENT: positive: No symptoms Pulmonary: positive: No symptoms Cardiovascular: positive: No symptoms Gastrointestinal: positive: No symptoms Genitourinary: positive: No symptoms Musculoskeletal: positive: No symptoms All Other Systems: positive: Reviewed and negative - Other Other Information/Narrative: Daryn is in good spirits. He reported his pain is well controlled. He is eating little bits of his soft diet and is going to try to increase his intake today. He reports he has been walking around in his room.He is a bit concerned today about when he can get his Covid shot.Also a bit anxious to find out what his follow-up treatment will be. We do not yet have final pathology on the surgical specimen. Objective - Patient Data Reviewed Vital Signs: Yes Vital Signs: Vital Signs x48h Temp Pulse Resp BP Pulse Ox 12/13/20 07:39 37.0 C 95 18 137/81 H 95 12/13/20 04:11 37.1 C 78 16 143/90 H 95 Weight: Weight 12/11/20 12/12/20 12/13/20 23:59 23:59 23:59 Weight (kg) 64.5 kg 66 kg Intake & Output: Intake and Output Totals x24h 12/11/20 12/12/20 12/13/20 23:59 23:59 23:59 Intake Total 4912.783 2817.217 840 Output Total 2230 590 180 Balance 2682.783 2227.217 660 - Lab Results Lab Results: 12/13/20 06:15 12/13/20 06:15 Other Lab Results: Lab Results x24hrs 12/13/20 12/13/20 12/13/20 Range/Units 07:52 06:15 06:15 WBC 10.7 (4.8-10.8) x10^3/uL RBC 4.11 L (4.70-6.10) 10^6/uL Hgb 11.9 L (14.0-18.0) g/dL Hct 37.0 L (42.0-52.0) % MCV 90.0 (80.0-94.0) fL MCH 29.0 (27.0-31.0) pg MCHC 32.2 (32.0-36.0) g/dL RDW 14.5 (12.0-15.0) % Plt Count 372 (130-450) 10^3/uL MPV 10.1 (7.4-11.4) fL Neut # (Auto) 6.7 H (1.5-6.6) 10^3/uL Lymph # (Auto) 2.5 (1.5-3.5) 10^3/uL Davison # (Auto) 0.9 (0.0-1.0) 10^3/uL Eos # (Auto) 0.4 (0.0-0.7) 10^3/uL Baso # (Auto) 0.1 (0.0-0.1) 10^3/uL Absolute Nucleated RBC 0.00 x10^3/uL Nucleated RBC % 0.0 /100WBC Sodium 141 (135-145) mmol/L Potassium 3.8 (3.5-5.0) mmol/L Chloride 106 (101-111) mmol/L Carbon Dioxide 26 (21-32) mmol/L Anion Gap 9.0 (6-13) BUN 13 (6-20) mg/dL Creatinine 0.8 (0.6-1.2) mg/dL Estimated GFR (MDRD) 103 (>89) Glucose 114 H (70-100) mg/dL POC Whole Bld Glucose 113 H (70 - 100) mg/dL Calcium 8.6 (8.5-10.3) mg/dL Phosphorus 3.9 (2.5-4.6) mg/dL Magnesium 2.1 (1.7-2.8) mg/dL Total Bilirubin 0.5 (0.2-1.0) mg/dL AST 15 (10-42) IU/L ALT 18 (10-60) IU/L Alkaline Phosphatase 74 (42-121) IU/L Total Protein 6.4 L (6.7-8.2) g/dL Albumin 3.2 (3.2-5.5) g/dL Globulin 3.2 (2.1-4.2) g/dL Albumin/Globulin Ratio 1.0 (1.0-2.2) 12/12/20 12/12/20 Range/Units 20:31 16:34 WBC (4.8-10.8) x10^3/uL RBC (4.70-6.10) 10^6/uL Hgb (14.0-18.0) g/dL Hct (42.0-52.0) % MCV (80.0-94.0) fL MCH (27.0-31.0) pg MCHC (32.0-36.0) g/dL RDW (12.0-15.0) % Plt Count (130-450) 10^3/uL MPV (7.4-11.4) fL Neut # (Auto) (1.5-6.6) 10^3/uL Lymph # (Auto) (1.5-3.5) 10^3/uL Davison # (Auto) (0.0-1.0) 10^3/uL Eos # (Auto) (0.0-0.7) 10^3/uL Baso # (Auto) (0.0-0.1) 10^3/uL Absolute Nucleated RBC x10^3/uL Nucleated RBC % /100WBC Sodium (135-145) mmol/L Potassium (3.5-5.0) mmol/L Chloride (101-111) mmol/L Carbon Dioxide (21-32) mmol/L Anion Gap (6-13) BUN (6-20) mg/dL Creatinine (0.6-1.2) mg/dL Estimated GFR (MDRD) (>89) Glucose (70-100) mg/dL POC Whole Bld Glucose 148 H 155 H (70 - 100) mg/dL Calcium (8.5-10.3) mg/dL Phosphorus (2.5-4.6) mg/dL Magnesium (1.7-2.8) mg/dL Total Bilirubin (0.2-1.0) mg/dL AST (10-42) IU/L ALT (10-60) IU/L Alkaline Phosphatase (42-121) IU/L Total Protein (6.7-8.2) g/dL Albumin (3.2-5.5) g/dL Globulin (2.1-4.2) g/dL Albumin/Globulin Ratio (1.0-2.2) - Current Medications Current Medications: Current Medications Generic Name Dose Route Start Last Admin Trade Name Freq PRN Reason Stop Dose Admin Acetaminophen 500 mg 12/11/20 09:51 12/11/20 21:10 Acetaminophen 500 Mg Tablet PO 500 mg Q4HR PRN Administration Pain or Fever > 38C (100.4F) Docusate Sodium 100 mg 12/10/20 21:00 12/13/20 07:51 Docusate Sodium 100 Mg Capsule PO Not Given BID FRANKIE Enoxaparin Sodium 40 mg 12/05/20 09:00 12/13/20 10:10 Enoxaparin 40 Mg/0.4 Ml Syringe SUBQ 40 mg DAILY FRANKIE Administration Hydromorphone HCl 0.5 mg 12/10/20 11:43 12/10/20 12:37 Hydromorphone 0.5 Mg/0.5 Ml Syringe IVP 0.5 mg Q2H PRN Administration PAIN Methocarbamol 500 mg 12/10/20 12:00 12/13/20 06:18 Methocarbamol 500 Mg Tablet PO 500 mg Q6HR FRANKIE Administration Pantoprazole Sodium 40 mg 12/05/20 07:00 12/13/20 06:28 Pantoprazole 40 Mg Vial IVP 40 mg QDAC FRANKIE Administration Polyethylene Glycol 17 gm 12/10/20 21:00 12/13/20 07:51 Polyethylene Glycol 3350 17 Gm Packet PO Not Given BID FRANKIE Sodium Chloride 10 ml 12/05/20 09:00 12/13/20 06:29 Sodium Chloride Flush 0.9% 10 Ml Syringe IVP 10 ml 0100,0900,1700 FRANKIE Administration Sodium Chloride 10 ml 12/05/20 02:23 12/13/20 06:29 Sodium Chloride Flush 0.9% 10 Ml Syringe IVP 10 ml PRN PRN Administration NEEDED PER PROVIDER ORDERS - Physical Exam Wound/Incisions: positive: Healing well, No drainage General Appearance: positive: No acute distress Eyes Bilateral: positive: Normal inspection ENT: positive: ENT inspection nml Respiratory: positive: No respiratory distress, Breath sounds nml Cardiovascular: positive: Regular rate & rhythm Abdomen: positive: Nml bowel sounds, No distention. negative: Guarding, Rebound Extremities: positive: Non-tender Neurologic/Psychiatric: positive: Oriented x3 ABX Reporting Has patient been on IV antibiotics over the past 48 hours?: No Impression/Plan - Problem List Problem List: Encourage p.o. intake. Encourage ambulation.Awaiting pathology for final treatment plans.
[2020-12-13] MEDS: ACETAMINOPHEN 500 MG TABLET PO PRN (20:16)
[2020-12-14] MEDS: SODIUM CHLORIDE FLUSH 0.9% 10 ML SYRINGE IVP PRN ×3 (05:57→13:42)
[2020-12-14] MEDS: methocarbamoL 500 MG TABLET PO SCH ×3 (05:57→19:33)
[2020-12-14] MEDS: PANTOPRAZOLE 40 MG VIAL IVP SCH (06:07)
[2020-12-14 06:19] LABS: BASOPHILS # (AUTO) 0.1 10^3/uL (0.0-0.1); BASOPHILS % (AUTO) 0.7 %; EOSINOPHILS # (AUTO) 0.5 10^3/uL (0.0-0.7); EOSINOPHILS % (AUTO) 4.7 %; HCT - HEMATOCRIT 38.3 % (42.0-52.0); HGB - HEMOGLOBIN 12.3 g/dL (14.0-18.0); LYMPHOCYTES # (AUTO) 3.1 10^3/uL (1.5-3.5); LYMPHOCYTES % (AUTO) 29.2 %; MEAN CORPUSCULAR HEMOGLOBIN 29.1 pg (27.0-31.0); MEAN CORPUSCULAR HGB CONC 32.1 g/dL (32.0-36.0); MEAN CORPUSCULAR VOLUME 90.8 fL (80.0-94.0); MEAN PLATELET VOLUME 10.2 fL (7.4-11.4); MONOCYTES % (AUTO) 9.1 %; NEUTROPHILS # (AUTO) 5.9 10^3/uL (1.5-6.6); NEUTROPHILS % (AUTO) 55.5 %; PLT - PLATELET COUNT 408 10^3/uL (130-450); RED BLOOD COUNT 4.22 10^6/uL (4.70-6.10); RED CELL DISTRIBUTION WIDTH 14.3 % (12.0-15.0); WHITE BLOOD COUNT 10.6 x10^3/uL (4.8-10.8)
[2020-12-14 06:33] LABS: ALBUMIN 3.3 g/dL (3.2-5.5); BILIRUBIN,TOTAL 0.7 mg/dL (0.2-1.0); CALCIUM 8.8 mg/dL (8.5-10.3); CREATININE 0.7 mg/dL (0.6-1.2); PHOSPHORUS 4.1 mg/dL (2.5-4.6); POTASSIUM 3.8 mmol/L (3.5-5.0); TOTAL PROTEIN 6.6 g/dL (6.7-8.2)
[2020-12-14] MEDS: polyethylene glycoL 3350 17 GM PACKET PO SCH ×2 (09:27→20:34)
[2020-12-14] MEDS: DOCUSATE SODIUM 100 MG CAPSULE PO SCH ×2 (09:27→20:33)
[2020-12-14] MEDS: ENOXAPARIN 40 MG/0.4 ML SYRINGE SUBQ SCH (13:41)
[2020-12-14] MEDS: SODIUM CHLORIDE FLUSH 0.9% 10 ML SYRINGE IVP SCH ×2 (13:42→19:33)
[2020-12-14] MEDS: MULTIVITAMIN W/MINERALS TABLET PO SCH (13:42)
--- NOTE | 2020-12-14 23:33 | PROVIDER PROGRESS NOTE ---
Progress Note Subjective No acute complaints. Positive bowel function. Tolerating diet. Voiding spontaneously. Procedure Performed: 1. Diagnostic laparoscopy 2. Laparoscopic adhesiolysis 3. Laparoscopic assisted right hemicolectomy 4. Laparoscopic assisted omental flap 5. Extracorporeal [id number] functional end-to-end isoperistaltic anastomosis 6. Drain placement 7. Tap block per anesthesia 8. PICC line per anesthesia Objective Afebrile hemodynamically acceptable General Appearance: positive: No acute distress Eyes Bilateral: positive: Normal inspection ENT: positive: ENT inspection nml Neck: positive: Nml inspection Respiratory: positive: Chest non-tender, No respiratory distress, Breath sounds nml. negative: Wheezes, Rales, Rhonchi Cardiovascular: positive: Regular rate & rhythm Extremities: positive: Non-tender, Full ROM, Nml appearance Neurologic/Psychiatric: positive: Oriented x3, CN's nml (2-12) Appropriately tender to palpation. Drain is serosanguineous. Impression/Plan Postoperative day #4 (1) GI - DC IVF, cont bowel regimen, diet as tolerated. GI ppx. Opiate sparring analgesia. (2) SURGERY - continue drain; remove prior to discharge. Continue Prevena wound VAC. (3) Renal/Lytes - continue IVF. Renal indices within normal limits. (4) Respiratory - O2 as necessary. Continue IS. (5) Heme - Will continue with DVT ppx. H/H stable. (6) Cardiovascular - HD acceptable. (7) Neuro - Opiate sparring analgesia. Antispasmodics with Robaxin. Neuropathic agents. (8) Immune/Infectious Disease - No further antibiotics secondary to the fact that this is not an infectious enteritis, nor is this consistent with inflammatory bowel disease; this is malignancy. (9) DC PLANNING - Likely DC in the next 24 to 48 hours
[2020-12-15] MEDS: SODIUM CHLORIDE FLUSH 0.9% 10 ML SYRINGE IVP SCH ×3 (00:38→16:59)
[2020-12-15] MEDS: methocarbamoL 500 MG TABLET PO SCH ×4 (00:38→18:19)
[2020-12-15] MEDS: SODIUM CHLORIDE FLUSH 0.9% 10 ML SYRINGE IVP PRN ×4 (00:38→11:40)
[2020-12-15] MEDS: PANTOPRAZOLE 40 MG VIAL IVP SCH (06:06)
[2020-12-15] MEDS: polyethylene glycoL 3350 17 GM PACKET PO SCH (07:29)
[2020-12-15] MEDS: DOCUSATE SODIUM 100 MG CAPSULE PO SCH (07:29)
[2020-12-15] MEDS: MULTIVITAMIN W/MINERALS TABLET PO SCH (11:40)
[2020-12-15] MEDS: ENOXAPARIN 40 MG/0.4 ML SYRINGE SUBQ SCH (11:40)
--- NOTE | 2020-12-15 19:11 | Discharge Plan ---
Discharge Plan Problem Reviewed?: Yes Disposition: Home Health Service Condition: Good Prescriptions: methocarbamoL [Robaxin] 500 mg PO Q6HR PRN #30 tablet PRN Reason: Spasms traMADol [Ultram] 50 mg PO Q4-6H PRN #30 tablet PRN Reason: Pain Diet: Soft Activity Restrictions: Wt Bearing as Tolerated Shower Restrictions: Yes (Do not get Prevena Vac wet) Driving Restrictions: Yes (No driving while taking pain medicaitons) Weight Bearing: Full Weight Instruction Topics: Cancer Colon and Rectal, Colon Surg Laparoscopic, Colorectal Surg Recovery, Colorectal Surg Hospital Home Assessment: DISCHARGE INSTRUCTIONS TEMPLATE: No heavy lifting, pushing, or pulling. Stairs are allowed, no str enuous/exertional activities. 5-10lbs weight carrying limit (i.e. gallon of milk) If provided, abdominal binder while out of bed and while ambulating. Call or proceed to clinic/ER for fevers, severe pain, nausea, vomiting, inability to pass flatus/stool, bleeding, wound redness/discharge, weakness, excessively loose stool/diarrhea, or for any other reasonably worrisome symptom or concern. Soft diet, no raw vegetables, avoid high fiber foods. Colace 100mg by mouth twice to three times daily while taking narcotic pain medication. If no bowel movement in 24-48hr, may take 17g Miralax in 8oz water twice daily until bowel movement. May shower, no submersive bathing. Follow up in clinic in 2-4 weeks for wound check and staple removal. No driving while taking narcotic pain medications. Follow up with primary care provider and/or medical subspecialist following discharge as well. Patient not allowed to drive self today or within 24 hours of surgery; Moreover the patient not to drive while taking narcotics. The Prevena wound VAC in place patient to return to clinic on Monday to have it removed by staff. No Smoking: If you smoke, Please STOP! Call for help. Follow-up with: Devon Becerra MD [Provider Admit Priv/Credential] -
--- NOTE | 2020-12-15 19:11 | DISCHARGE SUMMARY ---
Discharge Summary Admit Date: 12/07/20 Discharge Date: 12/15/20 Discharging Provider: Hernan Code Status: Attempt Resuscitation Condition at Discharge: Good Discharge Disposition: Home Health Service - DIAGNOSES Admission Diagnoses: 1. Small bowel obstruction 2. Suspected inflammatory bowel disease/terminal ileitis 3. "Bedbugs" 4. Chronic bloody diarrhea Discharge Diagnoses with Status of Each Condition: 1. Small bowel obstruction - RESOLVED/TREATED 2. Suspected inflammatory bowel disease/terminal ileitis - ruled out 3. "Bedbugs" - RESOLVED/TREATED 4. Chronic bloody diarrhea - RESOLVED/TREATED 5. Colonic malignancy - RESOLVED/TREATED 6. No evidence of metastatic disease - ruled out 7. Malnutrition - RESOLVED/TREATED 8. Electrolyte abnormality - RESOLVED/TREATED - HPI History of Present Illness: 50-year-old male with recurrent right lower quadrant pain, bloody diarrhea, and terminal ileal thickening.Denies any recent travel or sick contacts. Appears consistent with Crohn's disease. Will need colonoscopy. We will proceed with repeat CAT scan to evaluate for interval change. We will also send stool studies. (1) GI - IVF, bowel regimen, Bowel rest. (2) SURGERY - Plan repeat CT scan, colonoscopy and biopsies. We will send stool studies as well. In the setting of chronic ileal stricturing Crohn's patient will need resection. (3) Renal/Lytes - continue IVF. Renal indices within normal limits. (4) Respiratory - O2 as necessary. Continue IS. (5) Heme - Will continue with DVT ppx. H/H stable. (6) Cardiovascular - HD acceptable. (7) Neuro - Opiate sparring analgesia. Antispasmodics with Robaxin. Neuropathic agents. (8) Immune/Infectious Disease - Continue with empiric antibiotics. Stools stool studies. (9) ENDOCRINOLOGY - in the event that the patient will need immunomodulatory therapy to include steroids will obtain quant gold, hepatitis panel, HIV, amongst others especially if the patient will need long-term biologic therapy. Please note that voice recognition software was used to transcribe this note and inadvertent errors might persist in spite of review and editing. I am obliged to you for your attention. I am thankful to you for allowing me to participate with you in this care of this patient. - CONSULTS | PROCEDURES Consultations: Hospitalist; Anesthesia Procedures: Pre-Op Diagnosis: Small bowel obstruction; cecal mass; abdominal pain Procedure Performed: 1. Diagnostic laparoscopy 2. Laparoscopic adhesiolysis 3. Laparoscopic assisted right hemicolectomy 4. Laparoscopic assisted omental flap 5. Extracorporeal [id number] functional end-to-end isoperistaltic anastomosis 6. Drain placement 7. Tap block per anesthesia 8. PICC line per anesthesia Post Op Diagnosis: Same; no hepatic metastases grossly; no omental metastases grossly - HOSPITAL COURSE Hospital Course: Physician: Devon Becerra MD DATE OF ADMISSION: 12/07/2020 DATE OF DISCHARGE: 12/15/2020 This is an addendum to a report in [facility]. HOSPITAL COURSE: Patient admitted for small bowel obstruction and suspected terminal ileitis. He had CT scan confirming such. He was started broadly on antibiotics to include fluoroquinolone and metronidazole for anaerobic coverage. He was pending stool studies. The patient had no prior history of endoscopy for diagnostics towards inflammatory bowel disease, although this was his second presentation with similar complaints. He had intermittent and incomplete resumption of bowel functions, which was consistent with a partial small bowel obstruction. The patient underwent repeat imaging, which revealed similar findings including worsening obstructive sequelae. He underwent bowel prep in anticipation of tissue diagnosis towards finding whether this was consistent with an inflammatory process, infectious process or the occult concern for malignancy. He tolerated prep well, underwent colonoscopy which was noted for an ileocecal mass, large, through which there was no ability to perform intubation into the terminal ileum. The patient was biopsied for this area, which was consistent with a malignancy. Preliminary pathology was consistent with adenocarcinoma and the patient was scheduled for laparoscopic-assisted right hemicolectomy. The patient tolerated the procedure well, from which there was no complication. The patient had enhanced recovery after surgery pathway for which he was slowly advanced for bowel function. His Christiansen catheter was removed. He had spontane ous trial of void. Please see above for the operative procedure and specifics. He had resumption of bowel function with no complication. Drain was removed as was the Prevena wound VAC. The patient was out of bed. He was tolerating oral analgesia. He had no fever and was hemodynamically acceptable. He was ultimately appropriate for discharge to home. Please note: The patient was admitted with concerns for "bedbugs" and was appropriately treated on admission. He was maintained on isolation throughout his hospital course. There was report of possible scabies, but there was no clinical correlate. The patient was given discharge instructions avoiding any heavy lifting, pushing or pulling, was set up with primary care, and also was set up with me for followup and also was set up with oncology. Ultimately just at the time of the patient's discharge, he was also returned for pathology, which was negative for 23 lymph nodes with no evidence of metastatic disease. All margins were negative and there were no high risk features with no lymphovascular invasion, no perineural invasion or high-grade features. TD: 12/20/2020 10:16 - ALLERGIES Allergies/Adverse Reactions: Allergies Allergy/AdvReac Type Severity Reaction Status Date / Time Penicillins Allergy Rash Verified 12/04/20 23:59 - MEDICATIONS Home Medications: Ambulatory Orders Medication Instructions Recorded Confirmed Acetaminophen [Tylenol] 500 mg PO Q4HR PRN tablet 12/15/20 Docusate Sodium 100Mg Capsule 100 mg PO BID 12/15/20 [Colace 100Mg Capsule] methocarbamoL [Robaxin] 500 mg PO Q6HR PRN #30 tablet 12/15/20 polyethylene glycoL 3350 [Miralax] 17 gm PO BID packet 12/15/20 traMADol [Ultram] 50 mg PO Q4-6H PRN #30 tablet 12/15/20 - PHYSICAL EXAM AT DISCHARGE General Appearance: positive: No acute distress, Alert Eyes Bilateral: positive: Normal inspection, PERRL, EOMI ENT: positive: ENT inspection nml Neck: positive: Nml inspection Respiratory: positive: Chest non-tender, No respiratory distress, Breath sounds nml. negative: Wheezes, Rales, Rhonchi Cardiovascular: positive: Regular rate & rhythm Abdomen: positive: Non-tender, No distention. negative: Tenderness, Guarding, Rebound Back: positive: Nml inspection Skin: positive: Color nml Extremities: positive: Non-tender, Full ROM, Nml appearance Neurologic/Psychiatric: positive: Oriented x3, CN's nml (2-12), Motor nml, Sensation nml Physical Exam Other/Comments: Abdominal Exam: Inspection - Erythema none; Scars clean dry and intact with trochars healing well Auscultation -normoactive bowel sounds Palpation - Hernias none; Fluctuance none; Induration none; Scar N/A Prevena wound VAC removed. Drain left in place. - LABS Result Diagrams: 12/14/20 06:00 12/14/20 06:00 - SEPSIS Current Stage of Sepsis: Ruled out - FOLLOW UP Follow Up: See discharge plan within the patient's electronic medical record. Patient proceed to clinic for drain removal. Patient to follow-up with me in 2 weeks for staple removal. - TIME SPENT Time Spent in Discharge (Minutes): 60
[2020-12-15 19:55] VITALS: BP 119/82
--- OUTSIDE RECORDS SUMMARY | 2020-12-15 20:16 | EXTERNAL MEDICAL SUMMARY RPT | Continuity of Care Document ---
:1970 Demographics Phone Unavailable Preferred Language Unknown Marital Status Unknown Muslim Affiliation Unknown Race Unknown Ethnic Group Unknown Author Organization [facility] Address [address] [id number] Phone Social History date description facility [phone]
[2020-12-16] MEDS ORDERED: PANTOPRAZOLE 40 MG TABLET PO SCH (07:00)
--- NOTE | 2020-12-20 10:17 | DISCHARGE SUMMARY ---
Please delete as this has been incorporated into the medical record. MTDD
== END 2020-12-15 20:15 | disposition home health service (06) | DRG 330 ==
LOC: ED 23:55 → MS2 12-05 02:23 → UNDOADMOB 12-05 02:23 → MS2 12-05 05:21 → OBSVTOIN 12-07 11:51
PROVIDERS: ADMIT Surgery; ATTEND Surgery
PROC: 0DBC8ZX Excision of Ileocecal Valve, Via Natural or Artificial Opening Endoscopic, Diagnostic (ICD-10-PCS; 2020-12-08)
PROC: 0DTF0ZZ Resection of Right Large Intestine, Open Approach (ICD-10-PCS; principal; 2020-12-10 07:30)
DX: C18.0 Malignant neoplasm of cecum (principal); K56.600 Partial intestinal obstruction, unspecified as to cause; E46 Unspecified protein-calorie malnutrition; T14.8XXA Other injury of unspecified body region, initial encounter; W57.XXXA Bitten or stung by nonvenomous insect and other nonvenomous arthropods, initial encounter; K21.9 Gastro-esophageal reflux disease without esophagitis; F17.210 Nicotine dependence, cigarettes, uncomplicated; B86 Scabies; K02.9 Dental caries, unspecified; R94.31 Abnormal electrocardiogram [ECG] [EKG]; Z20.822 Contact with and (suspected) exposure to COVID-19; Z68.21 Body mass index [BMI] 21.0-21.9, adult
CPT/HCPCS: 0202U; 36415; 71045; 71250; 74177; 80053; 80074; 81599; 83690; 83735; 84100; 84134; 84478; 85025; 86480; 87329; 87338; 87389; 87493; 93005; 93306; 96365; 96366; 96372; 96375; 96376; 97110; 97161; 97165; 97530; 99284; 99285; A9270; C1751; G0378; J0131; J1170; J1650; J3490; J7040; J7120; Q9967; 87045; 87046

== ENCOUNTER 2021-02-09 12:50 | Outpatient (CLI) | payer MEDICAID | END 2021-02-09 23:59 | disposition home or self-care (01) | LOC: COV 12:50 | PROVIDERS: ATTEND Surgery | DX: Z01.812 Encounter for preprocedural laboratory examination (principal); R59.1 Generalized enlarged lymph nodes; Z20.822 Contact with and (suspected) exposure to COVID-19 ==

== ENCOUNTER 2021-02-12 06:14 | Day surgery (SDC) | payer MEDICAID ==
--- OUTSIDE RECORDS SUMMARY | 2021-02-12 06:17 | EXTERNAL MEDICAL SUMMARY RPT | Continuity of Care Document ---
:1970 Demographics Phone Unavailable Preferred Language Unknown Marital Status Unknown Yarsani Affiliation Unknown Race Unknown Ethnic Group Unknown Author Organization [facility] Address [address] [phone] Phone Allergies Encounters Medications Problems Results
[2021-02-12] MEDS ORDERED: ceFAZolin 2 GM/50 ML 2 GM/50 ML BAG IV ONE (06:19)
[2021-02-12] MEDS ORDERED: HEPARIN 5,000 UNIT/ML VIAL ONE (06:19)
[2021-02-12] MEDS ORDERED: LACTATED RINGERS 1,000 ML IV ONE ×2 (06:48→09:44)
[2021-02-12] MEDS ORDERED: MIDAZOLAM 2 MG/2 ML VIAL ONE (07:14)
[2021-02-12] MEDS ORDERED: fentaNYL 100 MCG/2 ML VIAL ONE (07:14)
--- NOTE | 2021-02-12 07:14 | ANESTHESIA ---
Pre-Anesthesia VS, & Labs Height: 5 ft 9.5 in Weight (kg): 67.8 kg Body Mass Index: 21.7 BMI Classification: Healthy weight - NPO >8 hours - Lab Results Lab results reviewed: Yes <Twila Monge - Last Filed: 02/12/21 07:11> - Diagnosis lymphadenopathy (Julio César Mongepatricia Bowen) - Procedure left axillary lymph node dissections, right periaricular lymph node biopsy (MongeTwila M) Vital Signs: Temp Pulse Resp BP Pulse Ox 36.4 C L 75 15 158/98 H 98 02/12/21 06:32 02/12/21 06:32 02/12/21 06:32 02/12/21 06:32 02/12/21 06:32 Home Medications and Allergies <Julio César Mongeica Jessi - Last Filed: 02/12/21 07:11> <Hipolito Hopkins - Last Filed: 02/12/21 07:15> Allergies/Adverse Reactions: Allergies Allergy/AdvReac Type Severity Reaction Status Date / Time Penicillins Allergy Rash Verified 02/12/21 06:52 Anes History & Medical History - Anesthetic History Anesthesia Complications: reports: No previous complications Family history of Anesthesia Complications: Denies Family history of Malignant Hyperthermia: Denies - Medical History Cardiovascular: reports: None Pulmonary: reports: None Gastrointestinal: reports: GERD, Other Urinary: reports: None Neuro: reports: None Musculoskeletal: reports: None Endocrine/Autoimmune: reports: None Blood Disorders: reports: None Skin: reports: None Smoking Status: Current every day smoker - Surgical History General: reports: Bowel surgery, Colonoscopy Eyes Ears Nose Throat (EENT): reports: Other <Julio César Mongeica Jessi - Last Filed: 02/12/21 07:11> Exam General: Alert, Oriented x3, Cooperative, No acute distress Dental: Loose/Frag, Poor dentition Mouth Openin Fingerbreadth Neck Mobility: Normal Mallampati classification: II Respiratory: Lungs clear, Normal breath sounds, No respiratory distress, No accessory muscle use Cardiovascular: Regular rate, Normal S1, Normal S2, No murmurs <Julio César Mongeica Jessi - Last Filed: 02/12/21 07:11> General: Alert, Oriented x3, Cooperative, No acute distress Dental: Loose/Frag, Poor dentition Mouth Openin Fingerbreadth Neck Mobility: Normal Mallampati classification: II Respiratory: Lungs clear, Normal breath sounds, No respiratory distress, No acc essory muscle use Cardiovascular: Regular rate, Normal S1, Normal S2, No murmurs <Hipolito Hopkins - Last Filed: 02/12/21 07:15> Plan Anesthesia Type: General Consent for Procedure(s) Verified and Reviewed: Yes Code Status: Attempt Resuscitation ASA classification: 2-Mild systemic disease Is this case an emergency?: No <Twila Monge - Last Filed: 02/12/21 07:11> Anesthesia Type: General Consent for Procedure(s) Verified and Reviewed: Yes Code Status: Attempt Resuscitation ASA classification: 2-Mild systemic disease Is this case an emergency?: No <Hipolito Hopkins - Last Filed: 02/12/21 07:15>
[2021-02-12] MEDS ORDERED: ONDANSETRON 4 MG/2 ML VIAL IVP PRN ×2 (07:15→09:31)
[2021-02-12] MEDS ORDERED: NALOXONE 0.4 MG/ML VIAL IVP PRN (07:15)
[2021-02-12] MEDS ORDERED: MORPHINE 2 MG/ML CARPUJECT IVP PRN (07:15)
[2021-02-12] MEDS ORDERED: ePHEDrine 50 MG/ML VIAL IVP PRN (07:15)
[2021-02-12] MEDS ORDERED: ATROPINE ABBOJECT 1 MG/10 ML SYRINGE IVP PRN (07:15)
[2021-02-12] MEDS ORDERED: fentaNYL 100 MCG/2 ML VIAL IVP PRN (07:15)
[2021-02-12] MEDS ORDERED: METOCLOPRAMIDE 10 MG/2 ML VIAL IVP PRN (07:15)
[2021-02-12] MEDS ORDERED: PROPOFOL 200 MG/20 ML VIAL IVP ONE (07:15)
[2021-02-12] MEDS ORDERED: HYDROmorphone 0.5 MG/0.5 ML SYRINGE IVP PRN ×2 (07:15→09:31)
[2021-02-12] MEDS ORDERED: DEXAMETHASONE 4 MG/ML VIAL ONE (07:17)
[2021-02-12] MEDS ORDERED: ONDANSETRON 4 MG/2 ML VIAL ONE (07:17)
[2021-02-12] MEDS ORDERED: LIDOCAINE 1% 50 ML MDV ONE (07:49)
[2021-02-12] MEDS ORDERED: BUPIVACAINE 0.5%-EPI 1:200000 PF 30 ML VIAL ONE (07:49)
[2021-02-12] MEDS ORDERED: LACTATED RINGERS 1,000 ML IV SCH ×2 (08:00→10:00)
[2021-02-12] MEDS ORDERED: ePHEDrine 50 MG/ML VIAL IVP ONE (08:43)
[2021-02-12] MEDS ORDERED: LIDOCAINE 1% 50 ML MDV SUBQ ONE (09:27)
[2021-02-12] MEDS ORDERED: BUPIVACAINE 0.5%-EPI 1:200000 PF 30 ML VIAL SUBQ ONE (09:28)
[2021-02-12] MEDS ORDERED: oxyCODONE 5 MG TABLET PO PRN (09:31)
--- NOTE | 2021-02-12 09:42 | OPERATIVE REPORT ---
Operative Report - General Procedure Date: 02/12/21 Planned Procedure: 1. Left axillary excisional lymph node biopsy 2. Right preauricular lymph node excisional biopsy Pre-Op Diagnosis: Colon cancer; diffuse lymphadenopathy Procedure Performed: 1. Left axillary excisional lymph node biopsy 2. Right preauricular lymph node excisional biopsy Post Op Diagnosis: Same - Procedure Note Primary Surgeon: Hernan Secondary Surgeon: Jerilyn Anesthesia Provider: Mariposa Anesthesia Technique: General LMA, Local Pathology: Specimens collected: 1. Left axillary node biopsy/excisional and RPMI #1 2. Left axillary node biopsy/excisional in formalin #1 3. Left axillary lymphadenopathy wide local excision of subcutaneous fat RPMI #2 4. Left axillary lymphadenopathy wide local excision of subcutaneous fat formalin #2 5. Left axillary skin biopsy 6. Right preauricular excisional biopsy RPMI 7. Right preauricular biopsy in formalin Estimated Blood Loss (mL): 10 Indications: See EMR. Patient has CT of the chest with bilateral axillary lymphadenopathy. History of colon cancer stage II with no evidence of positive metastatic lymphadenopathy in spite of robust lymph node harvest of greater than 20 nodes which were all negative. Biopsy to rule out metastatic disease or second primary. Findings: 1. Large left axillary lymph node performed for excisional biopsy divided between RPMI and formalin 2. Subcutaneous left axillary fat with palpable lymphadenopathy small sent between specimen for RPMI and formalin 3. Dissection performed sharply with no concern for nerve damage 4. Right preauricular lymph node performed for excisional biopsy divided between RPMI and formalin Complications: NONE - Other Other Information/Narrative: Indications: 51-year-old male patient has CT of the chest with bilateral axillary lymphadenopathy. History of colon cancer stage II with no evidence of positive metastatic lymphadenopathy in spite of robust lymph node harvest of greater than 20 nodes which were all negative. Biopsy to rule out metastatic disease or second primary. Intraoperative findings: 1. Large left axillary lymph node performed for excisional biopsy divided between RPMI and formalin 2. Subcutaneous left axillary fat with palpable lymphadenopathy small sent between specimen for RPMI and formalin 3. Dissection performed sharply with no concern for nerve damage 4. Right preauricular lymph node performed for excisional biopsy divided be tween RPMI and formalin Procedure note: Patient was taken to the operating room placed supine on the operating table left arm was abducted. Patient was induced for general endotracheal anesthesia. Left axilla and right neck and ear were prepped and draped in the usual sterile fashion. Patient was dosed with perioperative antibiotics within an hour of incision. Patient was called for a timeout which agreed to by all the room. Please note the patient was marked preoperatively for the left axilla and right preauricular region and identified by all in the room. We proceeded with the left axilla first. The left axilla was locally instilled for anesthesia and perioperative analgesia. A 6 cm horizontal skin incision was made in the skin crease just below the hairbearing skin of the axilla extending from the lateral edge of the pectoralis major muscle to the anterior edge of the latissimus dorsi muscle. Flaps were raised cephalad and caudal to the estimated level of the axillary vein superiorly and the edge of the pectoralis major medially using electrocautery. Large left axillary lymph node performed for excisional biopsy Metzenbaum scissors was dissected free and divided between RPMI and formalin. The clavipectoral fascia was then incised along the edge of the pectoralis major and the pectoralis major and minor were freed from surrounding fat ja tissue. Dissection progressed first under the pectoralis major and then under the pectoralis minor muscle. The pectoral muscles were retracted medially with a Marrero retractor. The medial pectoral neurovascular bundle was identified and preserved. There was no need to proceed to the level 2 ja tissue deep to the pectoralis minor which was not included in the dissection. The axillary vein was then identified and avoided without any injury. The thoracodorsal nerve was identified and preserved. The long thoracic nerve was deep to this superficial dissetion and preserved. The remaining ja tissue was then carefully excised and sharply dissected as specimen and sent for pathology and sent between specimen for RPMI and formalin. The wound was irrigated and hemostasis was achieved. The wound was closed with interrupted 3-0 Vicryl to the subcutaneous layer. Followed by a subcuticular of 4 Monocryl to reapproximate the skin, wound was dressed with Dermabond. Patient completed we proceeded with the right preauricular dissection. This area was performed for a 3 cm sharp incision below the area of lymphadenopathy. The lymph node was sharply excised using Metzenbaums dissection. No electrocautery was applied either here or above towards avoiding any nerve damage or complications. Right preauricular lymph node performed for excisional biopsy divided between RPMI and formalin. Skin also excised and sent for pathology. Skin was closed in layers with 3-0 Vicryl and 4-0 Monocryl. Skin was dressed with Dermabond. Local was used here as well. Patient tolerated procedure well which no complication I was present for the entire this operative intervention. All counts of sponges needles instruments were correct at the conclusion of the stop case. Please note that voice recognition software was used to transcribe this note and inadvertent errors might persist in spite of review and editing. I am obliged to you for your attention. I am thankful to you for allowing me to participate with you in this care of this patient.
--- NOTE | 2021-02-12 09:49 | PROVIDER PROGRESS NOTE ---
Progress Note BRIEF OPERATIVE NOTE: Procedure Date: 02/12/21 Planned Procedure: 1. Left axillary excisional lymph node biopsy 2. Right preauricular lymph node excisional biopsy Pre-Op Diagnosis: Colon cancer; diffuse lymphadenopathy Procedure Performed: 1. Left axillary excisional lymph node biopsy 2. Right preauricular lymph node excisional biopsy Post Op Diagnosis: Same - Procedure Note Primary Surgeon: Hernan Secondary Surgeon: Jerilyn Anesthesia Provider: Mariposa Anesthesia Technique: General LMA, Local Pathology: Specimens collected: 1. Left axillary node biopsy/excisional and RPMI #1 2. Left axillary node biopsy/excisional in formalin #1 3. Left axillary lymphadenopathy wide local excision of subcutaneous fat RPMI #2 4. Left axillary lymphadenopathy wide local excision of subcutaneous fat formalin #2 5. Left axillary skin biopsy 6. Right preauricular excisional biopsy RPMI 7. Right preauricular biopsy in formalin Estimated Blood Loss (mL): 10 Indications: See EMR. Patient has CT of the chest with bilateral axillary lymphadenopathy. History of colon cancer stage II with no evidence of positive metastatic lymphadenopathy in spite of robust lymph node harvest of greater than 20 nodes which were all negative. Biopsy to rule out metastatic disease or second primary. Findings: 1. Large left axillary lymph node performed for excisional biopsy divided b etween RPMI and formalin 2. Subcutaneous left axillary fat with palpable lymphadenopathy small sent between specimen for RPMI and formalin 3. Dissection performed sharply with no concern for nerve damage 4. Right preauricular lymph node performed for excisional biopsy divided between RPMI and formalin Complications: NONE
--- NOTE | 2021-02-12 09:52 | ANESTHESIA POST OP EVALUATION ---
Anesthesia Post Eval - Post Anesthesia Eval Vitals: Last Vital Signs Temp 36.3 C L 02/12/21 09:40 Pulse 100 02/12/21 09:40 Resp 18 02/12/21 09:40 BP 150/97 H 02/12/21 09:40 Pulse Ox 100 02/12/21 09:40 CV Function Including HR & BP: Stable Pain Control: Satisfactory Nausea & Vomiting: Negative Mental Status: Baseline Respiratory Status: Airway Patent Hydration Status: Satisfactory Anesthesia Complications: None
[2021-02-12 10:32] VITALS: BP 158/88
== END 2021-02-12 06:15 | disposition home or self-care (01) ==
LOC: SDS 06:14
PROVIDERS: ATTEND Surgery
PROC: 0HB5XZX Excision of Chest Skin, External Approach, Diagnostic (ICD-10-PCS; 2021-02-12)
PROC: 07B60ZX Excision of Left Axillary Lymphatic, Open Approach, Diagnostic (ICD-10-PCS; principal; 2021-02-12 07:30)
PROC: 07B00ZX Excision of Head Lymphatic, Open Approach, Diagnostic (ICD-10-PCS; 2021-02-12 07:30)
DX: R59.1 Generalized enlarged lymph nodes (principal); C19 Malignant neoplasm of rectosigmoid junction; L72.0 Epidermal cyst; F17.200 Nicotine dependence, unspecified, uncomplicated
CPT/HCPCS: 11106; 38500; J0690; J7120

== ENCOUNTER 2022-11-01 08:11 | Day surgery (SDC) | payer MEDICAID ==
[2022-11-01] MEDS ORDERED: LACTATED RINGERS 1,000 ML IV ONE (08:27)
--- NOTE | 2022-11-01 09:36 | ANESTHESIA ---
Pre-Anesthesia VS, & Labs - Diagnosis history of colon cancer - Procedure colonoscopy Vital Signs: Temp Pulse Resp BP Pulse Ox O2 Flow Rate 36.2 C L 95 18 162/100 H 98 11/01/22 08:27 11/01/22 08:27 11/01/22 08:27 11/01/22 08:27 11/01/22 08:27 Height: 5 ft 9 in Weight (kg): 80 kg Body Mass Index: 26.0 BMI Classification: Overweight - NPO Other (prep as directed) Home Medications and Allergies Home Medications: Ambulatory Orders Acetaminophen [Tylenol] 1 tab PO PRN PRN 10/31/22 Famotidine [Pepcid] 20 mg PO BID PRN 11/01/22 Acetaminophen [Tylenol] 1 tab PO PRN PRN 10/31/22 Famotidine [Pepcid] 20 mg PO BID PRN 11/01/22 Allergies/Adverse Reactions: Allergies Allergy/AdvReac Type Severity Reaction Status Date / Time Penicillins Allergy Rash Verified 10/31/22 13:41 Anes History & Medical History - Anesthetic History Anesthesia Complications: reports: No previous complications - Medical History Cardiovascular: reports: None Pulmonary: reports: None Gastrointestinal: reports: GERD, Other Urinary: reports: None Neuro: reports: None Musculoskeletal: reports: None Endocrine/Autoimmune: reports: None Blood Disorders: reports: None Skin: reports: None Smoking Status: Current every day smoker History of Cancer?: Yes - Surgical History General: reports: Bowel surgery, Colonoscopy Eyes Ears Nose Throat (EENT): reports: Other Exam Dental: Poor dentition Mouth Opening: Greater than 4 Fingerbreadths Mallampati classification: II Thyromental Distance: greater than 6 cm Respiratory: Lungs clear Cardiovascular: Regular rate, Normal S1, Normal S2 Plan Anesthesia Type: Total IV Consent for Procedure(s) Verified and Reviewed: Yes Code Status: Attempt Resuscitation ASA classification: 2-Mild systemic disease Is this case an emergency?: No
[2022-11-01] MEDS ORDERED: PROPOFOL 500 MG/50 ML 500 MG/50 ML VIAL ONE (09:40)
[2022-11-01] MEDS ORDERED: PROPOFOL 200 MG/20 ML VIAL IVP ONE (11:22)
[2022-11-01] MEDS ORDERED: LACTATED RINGERS 500 ML IV ONE (11:34)
--- NOTE | 2022-11-01 11:55 | ANESTHESIA POST OP EVALUATION ---
Anesthesia Post Eval - Post Anesthesia Eval Vitals: Last Vital Signs Temp 36.2 C L 11/01/22 11:34 Pulse 84 11/01/22 11:43 Resp 16 11/01/22 11:43 BP 117/72 11/01/22 11:43 Pulse Ox 99 11/01/22 11:43 O2 Flow Rate CV Function Including HR & BP: Stable Pain Control: Satisfactory Nausea & Vomiting: Negative Mental Status: Baseline Respiratory Status: Airway Patent Hydration Status: Satisfactory Anesthesia Complications: None
[2022-11-01 11:58] VITALS: BP 118/77
== END 2022-11-01 08:12 | disposition home or self-care (01) ==
LOC: SDS 08:11
PROVIDERS: ATTEND Surgery
PROC: 0DBL8ZX Excision of Transverse Colon, Via Natural or Artificial Opening Endoscopic, Diagnostic (ICD-10-PCS; 2022-11-01)
PROC: 0DBN8ZX Excision of Sigmoid Colon, Via Natural or Artificial Opening Endoscopic, Diagnostic (ICD-10-PCS; 2022-11-01)
PROC: 0DBP8ZX Excision of Rectum, Via Natural or Artificial Opening Endoscopic, Diagnostic (ICD-10-PCS; 2022-11-01)
PROC: 0DBM8ZX Excision of Descending Colon, Via Natural or Artificial Opening Endoscopic, Diagnostic (ICD-10-PCS; principal; 2022-11-01 09:45)
DX: D12.4 Benign neoplasm of descending colon (principal); D12.5 Benign neoplasm of sigmoid colon; D12.3 Benign neoplasm of transverse colon; D12.8 Benign neoplasm of rectum; Z85.038 Personal history of other malignant neoplasm of large intestine; Z87.891 Personal history of nicotine dependence; Z90.49 Acquired absence of other specified parts of digestive tract; Z98.0 Intestinal bypass and anastomosis status
CPT/HCPCS: 45380; 45385; J7120